=== PATIENT | male | born 1960 | race Caucasian/White ===

== ENCOUNTER → 2016-10-02 | Outpatient (CLI) | payer OTHER ==
[~2016-10-02] MED LIST: LISI-729 PO; METF1000 PO; OMEPRAZOLE PO; ONDA4TAB10 SL; OXYC1TAB3 PO; PRLSR20 PO; TAMS0.4C38 PO; [UNRECOGNIZED DRUG - OTHER] PO; simvastin PO
[2016-10-02 17:43] LABS: BASO % 0.9 %; BASO ABS # 0.07 K/uL (0-0.2); COMPLETE YES; EOS % 3.4 %; IG% 0.1 %; LYMPH % 23.1 %; LYMPH ABS # 1.86 K/uL (1.2-3.4); MEAN CELL VOLUME 90.3 fL (80-100); MEAN CORPUSCULAR HEMOGLOBIN 29.9 pg (25-34); MEAN CORPUSCULAR HGB CONC 33.1 g/dl (32-36); MEAN PLATELET VOLUME 10.8 fL (7.4-10.4); MONO % 5.7 %; NEUT % 66.8 %; PLATELET COUNT 248 K/uL (130-400); RED BLOOD COUNT 4.32 M/uL (4.7-6.1); WHITE BLOOD COUNT 8.04 K/uL (4.8-10.8)
[2016-10-02 17:53] LABS: URINE APPEARANCE CLEAR (CLEAR); URINE BILIRUBIN NEG (NEG); URINE COLOR YELLOW; URINE EPITHELIAL CELL AUTO 0-5 /lpf (0-5); URINE NITRITE NEG (NEG); URINE PH 5.5 (4.5-7.5); URINE SPECIFIC GRAVITY 1.024 (1.000-1.030); UROBILINOGEN NEG (NEG); ZZUR CULT IF INDIC CLEAN CATCH NO
[2016-10-02 17:54] LABS: ALT/SGPT 29 U/L (12-78); BLOOD UREA NITROGEN 23 mg/dl (7-18); BUN/CREATININE RATIO 22.8 (10-20); CARBON DIOXIDE 29 mmol/L (21-32); CHLORIDE 105 mmol/L (98-107); GLUCOSE 103 mg/dl (70-99); POTASSIUM 4.3 mmol/L (3.5-5.1); SODIUM 143 mmol/L (136-145)
[2016-10-02 17:55] LABS: MANUAL MICROSCOPIC REQUIRED? NO; REVIEW REQ? NO
[2016-10-02 18:02] LABS: CALCIUM 9.4 mg/dl (8.5-10.1)
[2016-10-02 18:04] LABS: ALB/GLOB RATIO 1.2 (0.9-2); ALKALINE PHOSPHATASE 68 U/L (45-117); AST/SGOT 19 U/L (15-37)
== END | disposition home or self-care (01) ==
LOC: C.LABBFT 12:34
PROVIDERS: ATTEND Physician Assistant Medical
DX: R63.4 Abnormal weight loss (principal)

== ENCOUNTER → 2016-10-03 | Outpatient (CLI) | payer OTHER ==
--- NOTE | 2016-10-03 15:55 | DIAGNOSTIC IMAGING REPORT ---
CHEST 2 VIEWS ROUTINE CLINICAL HISTORY: R63.4 Weight [id number] weight loss COMPARISON STUDY: No previous studies for comparison. FINDINGS: The bones soft tissues and hemidiaphragms are normal. The cardiomediastinal silhouette is normal. The lungs are clear. The pulmonary vasculature is normal. IMPRESSION: Negative chest. Electronically signed by: Steve Ruiz M.D. 10/03/2016 3:54 PM Dictated Date/Time: 10/03/2016 3:54 PM
== END | disposition home or self-care (01) ==
LOC: C.RAD1850 15:17
PROVIDERS: ATTEND Physician Assistant Medical
DX: R63.4 Abnormal weight loss (principal)

== ENCOUNTER 2016-12-11 13:25 | Emergency (ER) | payer OTHER ==
[~2016-12-11] VITALS: Ht 172.7 cm; Wt 81.1 kg
[~2016-12-11 13:25] MED LIST changes: -LISI-729 PO; -ONDA4TAB10 SL; -OXYC1TAB3 PO; -PRLSR20 PO; -TAMS0.4C38 PO
[2016-12-11 13:27] VITALS: TEMP 36.7; Ht 172.7 cm; Wt 81.1 kg
[2016-12-11] MEDS ORDERED: KETOROLAC TROMETHAMINE 30 MG/ML VIAL IV STA (13:39)
[2016-12-11] MEDS ORDERED: SODIUM CHLORIDE 0.9% 1000ML 1,000 ML IV STA (13:39)
[2016-12-11] MEDS ORDERED: MoRPHine SULFATE 10 MG/ML CARP/VIAL IV STA (13:39)
[2016-12-11] MEDS ORDERED: ONDANSETRON INJ 2 MG/ML 2 ML VIAL IV STA (13:39)
[2016-12-11] MEDS ORDERED: TAMSULOSIN HCL 0.4 MG CAP PO ONE (13:45)
[2016-12-11] MEDS ORDERED: LISI-729 PO (13:54)
[2016-12-11] MEDS ORDERED: PRLSR20 PO (13:54)
[2016-12-11 14:11] LABS: BASO % 0.2 %; BASO ABS # 0.03 K/uL (0-0.2); COMPLETE YES; EOS % 0.3 %; HEMATOCRIT 40.1 % (42-52); IG% 0.3 %; LYMPH ABS # 0.76 K/uL (1.2-3.4); MEAN CELL VOLUME 89.7 fL (80-100); MEAN CORPUSCULAR HEMOGLOBIN 31.1 pg (25-34); MEAN CORPUSCULAR HGB CONC 34.7 g/dl (32-36); MEAN PLATELET VOLUME 10.3 fL (7.4-10.4); MONO % 3.6 %; NEUT % 90.6 %; PLATELET COUNT 258 K/uL (130-400); RED BLOOD COUNT 4.47 M/uL (4.7-6.1); WHITE BLOOD COUNT 15.06 K/uL (4.8-10.8)
[2016-12-11 14:21] LABS: BUN/CREATININE RATIO 16.7 (10-20); CALCIUM 9.2 mg/dl (8.5-10.1); CREATININE 1.5 mg/dl (0.60-1.40); POTASSIUM 4.4 mmol/L (3.5-5.1)
--- NOTE | 2016-12-11 14:27 | DIAGNOSTIC IMAGING REPORT ---
CT SCAN OF THE ABDOMEN AND PELVIS WITHOUT IV CONTRAST CLINICAL HISTORY: Right-sided abdominal pain. COMPARISON STUDY: Fluoroscopic upper GI series dated 12/15/2005. TECHNIQUE: CT scan of the abdomen and pelvis is performed from the lung bases to the proximal femora. Images are reviewed in the axial, sagittal, and coronal planes. IV contrast was not administered for this examination as per the referring clinician. Automated dose control exposure was utilized. A dose lowering technique was utilized adhering to the principles of ALARA. CT DOSE: 682.46 mGy.cm FINDINGS: Lung bases: The heart is normal in size and without pericardial effusion. The lung bases are clear noting dependent atelectasis. There is a tiny hiatal hernia. Liver: The unenhanced liver is enlarged, measuring 19.1 cm in length. The liver is normal in contour And attenuation. There is no intrahepatic biliary ductal dilatation. Gallbladder: Unremarkable. Spleen: Normal in size and attenuation. Pancreas: Unremarkable. Adrenal glands: Unremarkable. Kidneys: The unenhanced kidneys are normal in size. There is a 4 mm obstructing calculus identified at the right vesicoureteral junction seen on axial image #370. This causes moderate right-sided hydroureteronephrosis. There is associated right-sided perinephric and periureteric stranding. No additional calculi are identified in either kidney and there is no left-sided hydronephrosis. There is no evidence of contour deforming renal mass lesion. Abdominal vasculature: The abdominal aorta is normal in course and caliber noting mild to moderate atherosclerotic calcification. Bowel: The small bowel and colon are normal in course and caliber. The appendix is well-visualized and normal. Peritoneum: There is no intraperitoneal free air or abdominal ascites. There is a fat-containing umbilical hernia. Lymphadenopathy: None. Pelvic viscera: The bladder, prostate, and seminal vesicles are normal as visualized. There is a large fat-containing left inguinal hernia. Skeletal structures: No lytic or blastic lesions are seen. IMPRESSION: 1. There is a 4 mm obstructing calculus at the right vesicoureteral junction. This causes moderate right-sided hydroureteronephrosis. 2. No additional calculi are seen in either kidney. 3. Hepatomegaly. 4. Additional findings as above. Electronically signed by: Duke Roque M.D. 12/11/2016 2:26 PM Dictated Date/Time: 12/11/2016 2:20 PM
[2016-12-11] MEDS ORDERED: TAMS0.4C38 PO (14:50)
[2016-12-11] MEDS ORDERED: ONDA4TAB10 SL (14:50)
[2016-12-11] MEDS ORDERED: OXYC1TAB3 PO (14:50)
--- NOTE | 2016-12-11 14:52 | EMERGENCY ROOM VISIT NOTE ---
History First contact with patient: 13:31 Chief Complaint: ABDOMINAL PAIN Stated Complaint: RT SIDE PAIN IN BELLY/BACK AREA History of Present Illness The patient is a 56 year old male who presents to the Emergency Room with complaints of acute onset of right flank pain. The patient states around 10 AM this morning he got a sharp pain in the right lower back which came around the right side. The patient also states that he fell nauseous and diaphoretic. The patient still feels like someone "punched him". The patient denies any urinary symptoms of frequency, urgency, dysuria. The patient denies any chest pain or shortness of breath. The patient states he had a normal bowel movement. He last ate at 6:30 AM. The patient denies any similar symptoms in the past. The patient denies any history of kidney stones. His family doctor is Dr. Ayala Review of Systems 10 system review was performed and was negative unless stated otherwise history of present illness. Past Medical/Surgical History GERD, diabetes Social History Smoking Status: Never Smoker Marital Status: Housing Status: lives with family Occupation Status: employed Current/Historical Medications Scheduled Lisinopril (Prinivil), 5 MG PO DAILY Omeprazole (Prilosec), 20 MG PO DAILY Allergies Coded Allergies: No Known Allergies (Unverified , 12/11/11) Physical Exam Vital Signs Date Time Temp Pulse Resp B/P (MAP) Pulse Ox O2 Delivery O2 Flow Rate FiO2 12/11/16 13:27 36.7 57 20 144/89 97 Room Air Physical Exam GENERAL: 56-year-old white male appears uncomfortable secondary to pain. MENTAL Status: Alert and oriented 3 MOUTH: Mucosa is moist NECK: Supple, no lymphadenopathy noted. No carotid bruits noted. LUNGS: Clear auscultation without wheezes rales or rhonchi. CARDIAC: Regular rate and rhythm without murmur. Pulses is full and equal throughout. BACK: Right CVA tenderness noted. ABDOMEN: Positive bowel sounds all 4 quadrants. Soft, nontender to palpation without organomegaly or masses. EXTREMITIES: No cyanosis or edema noted. Medical Decision & Procedures ER Provider Diagnostic Interpretation: CT SCAN OF THE ABDOMEN AND PELVIS WITHOUT IV CONTRAST CLINICAL HISTORY: Right-sided abdominal pain. COMPARISON STUDY: Fluoroscopic upper GI series dated 12/15/2005. TECHNIQUE: CT scan of the abdomen and pelvis is performed from the lung bases to the proximal femora. Images are reviewed in the axial, sagittal, and coronal planes. IV contrast was not administered for this examination as per the referring clinician. Automated dose control exposure was utilized. A dose lowering technique was utilized adhering to the principles of ALARA. CT DOSE: 682.46 mGy.cm FINDINGS: Lung bases: The heart is normal in size and without pericardial effusion. The lung bases are clear noting dependent atelectasis. There is a tiny hiatal hernia. Liver: The unenhanced liver is enlarged, measuring 19.1 cm in length. The liver is normal in contour And attenuation. There is no intrahepatic biliary ductal dilatation. Gallbladder: Unremarkable. Spleen: Normal in size and attenuation. Pancreas: Unremarkable. Adrenal glands: Unremarkable. Kidneys: The unenhanced kidneys are normal in size. There is a 4 mm obstructing calculus identified at the right vesicoureteral junction seen on axial image #370. This causes moderate right-sided hydroureteronephrosis. There is associated right-sided perinephric and periureteric stranding. No additional calculi are identified in either kidney and there is no left-sided hydronephrosis. There is no evidence of contour deforming renal mass lesion. Abdominal vasculature: The abdominal aorta is normal in course and caliber noting mild to moderate atherosclerotic calcification. Bowel: The small bowel and colon are normal in course and caliber. The appendix is well-visualized and normal. Peritoneum: There is no intraperitoneal free air or abdominal ascites. There is a fat-containing umbilical hernia. Lymphadenopathy: None. Pelvic viscera: The bladder, prostate, and seminal vesicles are normal as visualized. There is a large fat-containing left inguinal hernia. Skeletal structures: No lytic or blastic lesions are seen. IMPRESSION: 1. There is a 4 mm obstructing calculus at the right vesicoureteral junction. This causes moderate right-sided hydroureteronephrosis. 2. No additional calculi are seen in either kidney. 3. Hepatomegaly. 4. Additional findings as above. Electronically signed by: Duke Roque M.D. 12/11/2016 2:26 PM Dictated Date/Time: 12/11/2016 2:20 PM Laboratory Results 12/11/16 13:50 Red Blood Count 4.47, Mean Corpuscular Volume 89.7, Mean Corpuscular Hemoglobin 31.1, Mean Corpuscular Hemoglobin Concent 34.7, Mean Platelet Volume 10.3, Neutrophils (%) (Auto) 90.6, Lymphocytes (%) (Auto) 5.0, Monocytes (%) (Auto) 3.6, Eosinophils (%) (Auto) 0.3, Basophils (%) (Auto) 0.2, Neutrophils # (Auto) 13.65, Lymphocytes # (Auto) 0.76, Monocytes # (Auto) 0.54, Eosinophils # (Auto) 0.04, Basophils # (Auto) 0.03 12/11/16 13:50 Test 12/11/16 13:50 White Blood Count 15.06 K/uL (4.8-10.8) Red Blood Count 4.47 M/uL (4.7-6.1) Hemoglobin 13.9 g/dL (14.0-18.0) Hematocrit 40.1 % (42-52) Mean Corpuscular Volume 89.7 fL (80-100) Mean Corpuscular Hemoglobin 31.1 pg (25-34) Mean Corpuscular Hemoglobin Concent 34.7 g/dl (32-36) Platelet Count 258 K/uL (130-400) Mean Platelet Volume 10.3 fL (7.4-10.4) Neutrophils (%) (Auto) 90.6 % Lymphocytes (%) (Auto) 5.0 % Monocytes (%) (Auto) 3.6 % Eosinophils (%) (Auto) 0.3 % Basophils (%) (Auto) 0.2 % Neutrophils # (Auto) 13.65 K/uL (1.4-6.5) Lymphocytes # (Auto) 0.76 K/uL (1.2-3.4) Monocytes # (Auto) 0.54 K/uL (0.11-0.59) Eosinophils # (Auto) 0.04 K/uL (0-0.5) Basophils # (Auto) 0.03 K/uL (0-0.2) RDW Standard Deviation 39.8 fL (36.4-46.3) RDW Coefficient of Variation 12.1 % (11.5-14.5) Immature Granulocyte % (Auto) 0.3 % Immature Granulocyte # (Auto) 0.04 K/uL (0.00-0.02) Anion Gap 5.0 mmol/L (3-11) Est Creatinine Clear Calc Drug Dose 54.5 ml/min Estimated GFR () 60.3 Estimated GFR (Non- 52.0 BUN/Creatinine Ratio 16.7 (10-20) Calcium Level 9.2 mg/dl (8.5-10.1) Total Bilirubin 0.5 mg/dl (0.2-1) Direct Bilirubin 0.1 mg/dl (0-0.2) Aspartate Amino Transf (AST/SGOT) 19 U/L (15-37) Alanine Aminotransferase (ALT/SGPT) 28 U/L (12-78) Alkaline Phosphatase 66 U/L (45-117) Total Protein 7.9 gm/dl (6.4-8.2) Albumin 4.5 gm/dl (3.4-5.0) Lipase 243 U/L (73-393) Medications Administered Medications (Trade) Dose Ordered Sig/Steven Route Start Time Stop Time Status Last Admin Dose Admin Sodium Chloride 1,000 ml @ 999 mls/hr Q1H1M STAT IV 12/11/16 13:39 12/11/16 14:39 DC 12/11/16 14:01 999 MLS/HR Ondansetron HCl (Zofran Inj) 4 mg NOW STAT IV 12/11/16 13:39 12/11/16 13:42 DC 12/11/16 14:01 4 MG Ketorolac Tromethamine (Toradol Inj) 30 mg NOW STAT IV 12/11/16 13:39 12/11/16 13:42 DC 12/11/16 14:01 30 MG Morphine Sulfate (MoRPHine SULFATE INJ) 6 mg NOW STAT IV 12/11/16 13:39 12/11/16 13:42 DC 12/11/16 14:02 6 MG Tamsulosin HCl (Flomax Cap) 0.4 mg NOW ONCE PO 12/11/16 13:45 12/11/16 13:46 DC 12/11/16 14:02 0.4 MG ED Course The patient was evaluated. The patient's EMR medication list were reviewed. IV access was obtained. The patient was given 1 L normal saline wide-open. He was also given Zofran 4 mg IV, morphine 6 mg IV and Toradol 30 mg IV. He was also given Flomax 0.4 mg by mouth. CBC and differential, renal profile, LFTs and lipase levels were ordered. Urinalysis was ordered. CT stone study was ordered and interpreted by the radiologist as above with a 4 mm obstructing calculus noted at the right UV junction labs are reviewed. The patient's white count was elevated at 15,000. BUN and creatinine were slightly elevated. The patient was reevaluated was feeling much better. I discussed the case with Dr. Gee who agreed with treatment plan. The patient was discharged home in stable condition.. Medical Decision Differential diagnosis include acute cholecystitis, ureteral calculi, pyelonephritis, acute appendicitis Impression Primary Impression: Right ureteral calculus Departure Information Dispostion Home / Self-Care Condition GOOD Prescriptions Oxycodone Immediate Rel Tab (ROXICODONE IR) 5 Mg Tab 1-2 TAB PO Q4H Y for Pain, #24 TAB Prov: Meg Ruiz PA-C 12/11/16 Ondasetron Odt (ZOFRAN ODT) 4 Mg Tab 4 MG SL Q6H for Nausea, #10 TAB Prov: Meg Ruiz PA-C 12/11/16 Tamsulosin Hcl (FLOMAX) 0.4 Mg Cap 0.4 MG PO DAILY for 7 Days, #7 CAP Prov: Meg Ruiz PA-C 12/11/16 Referrals Alexx Ayala M.D. (PCP) Martin Longoria MD, Urology Forms Call Back Authorization, HOME CARE DOCUMENTATION FORM, IMPORTANT VISIT INFORMATION Patient Instructions Kidney Stones - [facility], [facility] Additional Instructions Drink a lot of water. Strain all urine. Ibuprofen 600 mg every 6 hours with food for pain. Take OxyIR as needed for more severe pain. Do not drive while taking the OxyIR. Take Zofran as needed for nausea. Take Flomax daily as directed. If you do not pass the kidney stone in 5-7 days, recommend follow-up with Dr. Longoria. If symptoms worsen in the interim, return to ER.
[2016-12-11 15:06] VITALS: BP 102/50; PULSE 60; O2SAT 95
== END 2016-12-11 15:07 | disposition home or self-care (01) ==
LOC: C.EDB 13:26 → C.EDC 15:07
DX: N20.1 Calculus of ureter (principal); E11.9 Type 2 diabetes mellitus without complications; K21.9 Gastro-esophageal reflux disease without esophagitis; Z79.899 Other long term (current) drug therapy

== ENCOUNTER 2021-02-14 18:15 | Inpatient (IN) ==
[2021-02-14] MEDS ORDERED: dexAMETHasone**PF** 10 MG/ML VIAL IV ONE (19:33)
[2021-02-14] MEDS ORDERED: SODIUM CHLORIDE 0.9% 500 ML IV STA (19:33)
--- NOTE | 2021-02-14 19:36 | Emergency Department Note ---
Impression & Plan Hypoxia, COVID-19 Admission ED Provider Note HPI: The patient is a 60-year-old male with history of insulin-dependent diabetes, presents the emergency department the chief complaint of increasing shortness of breath. Patient states that he has had some shortness of breath and muscle aches for the past 8 days, he states that he took a COVID-19 home test yesterday and it did return positive for COVID-19. He states he has had worsening shortness of breath throughout the day today and his advised him to go to the emergency department. On arrival here to the ED he is tachycardic in the 130s, his oxygen saturation is noted to be 84% on room air and therefore he was placed on supplemental oxygen via nasal cannula with good improvement in his oxygen saturations in the mid 90s on 4 L nasal cannula. He denies any chest pain, states he has had muscle aches and shortness of breath. He is in mild distress secondary to Mild increased work of breathing on my initial evaluation but is otherwise hemodynamically stable. ROS: - Pulmonary: Shortness of breath, COVID-19 positive *10 point review systems was conducted and is otherwise negative unless stated above *Outpatient medications and allergy history reviewed PE: General: Alert, NAD HEENT: Normocephalic, atraumatic, trachea midline Eyes: Extraocular eye movement is intact, no scleral erythema Pulmonary: Diminished bilateral breath sounds, no crackles or wheezing Cardio: Regular rate and rhythm GI: Abdomen is soft, nontender : No suprapubic tenderness MSK: No evidence of trauma or malformation of the extremities, no edema Skin: No evidence of rash Neuro: Alert, no focal deficits 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 Patient states he tested positive for COVID-19 over the weekend on home test. On arrival he is hypoxic at 84%, he responded well to nasal cannula. On my assessment he has diminished bilateral breath sounds, he is slightly tachypneic, his abdomen is soft and nontender. He is alert, he is speaking to me clearly. CT angiography does not show any evidence of pulmonary embolism, patient did test positive for COVID-19 on confirmatory test. Procalcitonin is elevated, will draw blood cultures and the patient will be treated with IV ceftriaxone and IV azithromycin given elevation in procalcitonin with finding of pneumonia on CT imaging. EKG does not show any ischemic changes.Troponin is slightly elevated at 0.058, suspect in the setting of an acute kidney injury with creatinine elevation at 2.2, this is likely demand related, patient does not have any chest pain, I believe suspicion for ACS. Patient was given IV fluids in the ED for his acute kidney injury. Case was discussed with the on-call hospitalist for Cailin Telles, patient will be admitted to a telemetry bed for further management. * Diagnosis: COVID-19 pneumonia with hypoxia, Elevated troponin, acute kidney injury * Disposition: Admission * CRITICAL CARE TIME: 50 min Time spent at the bedside and interpretation of diagnostic studies, discussion with the patient, discussion with other physicians, treatment of hypoxia requiring supplemental oxygen requirement for oxygen saturations less than 90% on room air Steve Tovar DO Emergency Medicine Past Med/Surg History Medical History (Updated 02/14/21 @ 23:24 by Steve Tovar DO) Uncontrolled type 2 diabetes mellitus Surgical History (Updated 05/12/20 @ 16:07 by Rose Delgado LPN) History of colonoscopy Family History (Updated 10/05/20 @ 15:00 by Dorinda Bethea) Mother Diabetes Other Myocardial infarction Denies family history of Ovarian cancer Prostate cancer Breast cancer Colorectal cancer Social History (Updated 10/05/20 @ 15:01 by Dorinda Bethea) Smoking Status: Former smoker Tobacco Type: Cigarettes Second Hand Exposure: No; Hx Alcohol Use: Yes Alcohol Intake Frequency: Monthly or Less Hx Substance Use: No Preferred Language: Maori Visual Impairment: No Limitations Hearing Ability: Normal marital status: Current Living Situation: Family current occupational status: employed Feels Safe at Home: Yes Childhood Exposure to Second-Hand Smoke: Yes Dental Care, Regularly: No Physical Activity Frequency: Daily Allergies Allergies Allergy/AdvReac Type Severity Reaction Status Date / Time No Known Allergies Allergy Verified 10/05/20 14:59 Home Meds Home Medications Medication Instructions Recorded Confirmed lisinopril 5 mg tablet 5 mg PO DAILY 02/14/21 02/14/21 omeprazole 20 mg capsule,delayed 20 mg PO DAILY 02/14/21 02/14/21 release Previous Rx's Medication Instructions Recorded meloxicam 7.5 mg tablet 7.5 mg PO DAILY #30 tab 06/09/21 rosuvastatin 10 mg tablet 10 mg PO DAILY #90 tab 10/15/20 metformin 500 mg tablet,extended 1,000 mg PO BID #360 tab 02/01/21 release 24 hr Results & Data (ED) Vital Signs Vital Signs - 24 hr 02/14/21 19:02 02/14/21 19:06 02/14/21 19:15 Temperature 38.1 C H Temperature Source Temporal Artery Scan Pulse Rate 135 H 128 H Pulse Rate from SpO2 Sensor 127 H Respiratory Rate 20 25 H Blood Pressure 111/73 Blood Pressure Mean 85 Pulse Oximetry 84 L 96 90 Oxygen Delivery Method Room Air Room Air Oxygen Flow Rate 86 Sepsis Recent Fever Within 48 Hours No Sepsis New/Unexplained Change in Mental Status No Sepsis Action Taken by Nursing No Action Required Oxygen Flow Rate - Titration 4 02/14/21 19:20 02/14/21 19:30 02/14/21 19:40 Temperature Temperature Source Pulse Rate 125 H 134 H 128 H Pulse Rate from SpO2 Sensor 126 H 134 H 128 H Respiratory Rate 25 H 22 20 Blood Pressure 124/80 Blood Pressure Mean 94 Pulse Oximetry 91 92 91 Oxygen Delivery Method Oxygen Flow Rate Sepsis Recent Fever Within 48 Hours Sepsis New/Unexplained Change in Mental Status Sepsis Action Taken by Nursing Oxygen Flow Rate - Titration 02/14/21 19:50 02/14/21 20:00 02/14/21 20:10 Temperature Temperature Source Pulse Rate 123 H 124 H 126 H Pulse Rate from SpO2 Sensor 122 H 124 H 126 H Respiratory Rate 24 20 25 H Blood Pressure Blood Pressure Mean Pulse Oximetry 93 94 94 Oxygen Delivery Method Oxygen Flow Rate Sepsis Recent Fever Within 48 Hours Sepsis New/Unexplained Change in Mental Status Sepsis Action Taken by Nursing Oxygen Flow Rate - Titration 02/14/21 20:15 02/14/21 20:20 02/14/21 20:30 Temperature Temperature Source Pulse Rate 122 H 123 H 115 H Pulse Rate from SpO2 Sensor 122 H 116 H Respiratory Rate 20 29 H 25 H Blood Pressure Blood Pressure Mean Pulse Oximetry 86 L 93 94 Oxygen Delivery Method Room Air Oxygen Flow Rate Sepsis Recent Fever Within 48 Hours Sepsis New/Unexplained Change in Mental Status Sepsis Action Taken by Nursing Oxygen Flow Rate - Titration 02/14/21 20:40 02/14/21 20:50 02/14/21 21:06 Temperature Temperature Source Pulse Rate 120 H 121 H Pulse Rate from SpO2 Sensor 119 H 122 H 125 H Respiratory Rate 20 24 Blood Pressure Blood Pressure Mean Pulse Oximetry 93 93 91 Oxygen Delivery Method Oxygen Flow Rate Sepsis Recent Fever Within 48 Hours Sepsis New/Unexplained Change in Mental Status Sepsis Action Taken by Nursing Oxygen Flow Rate - Titration 02/14/21 21:10 02/14/21 21:36 02/14/21 21:40 Temperature Temperature Source Pulse Rate 116 H 114 H 112 H Pulse Rate from SpO2 Sensor 117 H 120 H 113 H Respiratory Rate 32 H 18 20 Blood Pressure 112/78 Blood Pressure Mean 89 Pulse Oximetry 93 92 96 Oxygen Delivery Method Oxygen Flow Rate Sepsis Recent Fever Within 48 Hours Sepsis New/Unexplained Change in Mental Status Sepsis Action Taken by Nursing Oxygen Flow Rate - Titration 02/14/21 22:00 02/14/21 22:30 02/14/21 23:00 Temperature Temperature Source Pulse Rate 108 H 102 H 97 H Pulse Rate from SpO2 Sensor 109 H 102 H Respiratory Rate 29 H 28 H 23 Blood Pressure 110/71 105/72 Blood Pressure Mean 84 83 Pulse Oximetry 97 98 98 Oxygen Delivery Method Nasal Cannula Nasal Cannula Oxygen Flow Rate 4 4 Sepsis Recent Fever Within 48 Hours Sepsis New/Unexplained Change in Mental Status Sepsis Action Taken by Nursing Oxygen Flow Rate - Titration Laboratory Data Result diagrams: 02/14/21 19:37 02/14/21 19:37 Lab Results 02/14/21 02/14/21 02/14/21 Range/Units 19:37 19:37 19:37 WBC 4.21 L (4.8-10.8) K/uL RBC 4.78 (4.7-6.1) M/uL Hgb 14.7 (14.0-18.0) g/dL Hct 42.2 (42-52) % MCV 88.3 (80-100) fL MCH 30.8 (25-34) pg MCHC 34.8 (32-36) g/dL RDW Std Deviation 40.6 (36.4-46.3) fL RDW Coeff of Jen 12.6 (11.5-14.5) % Plt Count 215 (130-400) K/uL MPV 11.1 H (7.4-10.4) fL Immature Gran % (Auto) 0.0 % Neut % (Auto) 76.8 % Lymph % (Auto) 12.6 % [place] % (Auto) 10.2 % Eos % (Auto) 0.2 % Baso % (Auto) 0.2 % Neut # (Auto) 3.23 (1.4-6.5) K/uL Lymph # (Auto) 0.53 L (1.2-3.4) K/uL [place] # (Auto) 0.43 (0.11-0.59) K/uL Eos # (Auto) 0.01 (0-0.5) K/uL Baso # (Auto) 0.01 (0-0.2) K/uL Immature Gran # (Auto) 0.00 (0.00-0.02) K/uL PT Cancelled INR Cancelled APTT Cancelled PTT Ratio Cancelled VBG pH (7.36-7.41) VBG pCO2 (38-50) mmHg VBG pO2 mmHg VBG HCO3 mmol/L VBG O2 Saturation % VBG Base Excess mEq/L Barometric Pressure mm/Hg Sodium 130 L (136-145) mmol/L Potassium 4.7 (3.5-5.1) mmol/L Chloride 100 (98-107) mmol/L Carbon Dioxide 20 L (21-32) mmol/L Anion Gap 10.0 (3-11) BUN 46 H (7-18) mg/dl Creatinine 2.33 H (0.6-1.4) mg/dl Est Cr Clr Drug Dosing 34.5 ml/min Est GFR ( Amer) 34.4 ml/min Est GFR (Non-Af Amer) 29.7 ml/min BUN/Creatinine Ratio 19.9 (10-20) Glucose 254 H (70-99) mg/dl Lactate (0.4-2.0) mmol/L Calcium 8.8 (8.5-10.1) mg/dl Total Bilirubin 0.5 (0.2-1) mg/dl AST 97 H (15-37) U/L ALT 84 H (12-78) U/L Alkaline Phosphatase 40 L (45-117) U/L Total Protein 8.0 (6.4-8.2) gm/dl Albumin 3.0 L (3.4-5.0) gm/dl Globulin 5.0 H (2.5-4.0) gm/dl Albumin/Globulin Ratio 0.6 L (0.9-2) Procalcitonin (0-0.5) ng/ml Specimen Hemolysis COVID-19 Eval Order SARS-CoV-2 (PCR) (Negative) 02/14/21 02/14/21 02/14/21 Range/Units 19:37 19:37 20:15 WBC (4.8-10.8) K/uL RBC (4.7-6.1) M/uL Hgb (14.0-18.0) g/dL Hct (42-52) % MCV (80-100) fL MCH (25-34) pg MCHC (32-36) g/dL RDW Std Deviation (36.4-46.3) fL RDW Coeff of Jen (11.5-14.5) % Plt Count (130-400) K/uL MPV (7.4-10.4) fL Immature Gran % (Auto) % Neut % (Auto) % Lymph % (Auto) % [place] % (Auto) % Eos % (Auto) % Baso % (Auto) % Neut # (Auto) (1.4-6.5) K/uL Lymph # (Auto) (1.2-3.4) K/uL [place] # (Auto) (0.11-0.59) K/uL Eos # (Auto) (0-0.5) K/uL Baso # (Auto) (0-0.2) K/uL Immature Gran # (Auto) (0.00-0.02) K/uL PT INR APTT PTT Ratio VBG pH 7.38 (7.36-7.41) VBG pCO2 37 L (38-50) mmHg VBG pO2 17 mmHg VBG HCO3 21 mmol/L VBG O2 Saturation < 60.0 % VBG Base Excess -3.5 mEq/L Barometric Pressure 732.8 mm/Hg Sodium (136-145) mmol/L Potassium (3.5-5.1) mmol/L Chloride (98-107) mmol/L Carbon Dioxide (21-32) mmol/L Anion Gap (3-11) BUN (7-18) mg/dl Creatinine (0.6-1.4) mg/dl Est Cr Clr Drug Dosing ml/min Est GFR ( Amer) ml/min Est GFR (Non-Af Amer) ml/min BUN/Creatinine Ratio (10-20) Glucose (70-99) mg/dl Lactate (0.4-2.0) mmol/L Calcium (8.5-10.1) mg/dl Total Bilirubin (0.2-1) mg/dl AST (15-37) U/L ALT (12-78) U/L Alkaline Phosphatase (45-117) U/L Total Protein (6.4-8.2) gm/dl Albumin (3.4-5.0) gm/dl Globulin (2.5-4.0) gm/dl Albumin/Globulin Ratio (0.9-2) Procalcitonin (0-0.5) ng/ml Specimen Hemolysis COVID-19 Eval Order Covid19 at [facility] SARS-CoV-2 (PCR) POSITIVE A* (Negative) 02/14/21 02/14/21 02/14/21 Range/Units 20:16 20:16 20:52 WBC (4.8-10.8) K/uL RBC (4.7-6.1) M/uL Hgb (14.0-18.0) g/dL Hct (42-52) % MCV (80-100) fL MCH (25-34) pg MCHC (32-36) g/dL RDW Std Deviation (36.4-46.3) fL RDW Coeff of Jen (11.5-14.5) % Plt Count (130-400) K/uL MPV (7.4-10.4) fL Immature Gran % (Auto) % Neut % (Auto) % Lymph % (Auto) % [place] % (Auto) % Eos % (Auto) % Baso % (Auto) % Neut # (Auto) (1.4-6.5) K/uL Lymph # (Auto) (1.2-3.4) K/uL [place] # (Auto) (0.11-0.59) K/uL Eos # (Auto) (0-0.5) K/uL Baso # (Auto) (0-0.2) K/uL Immature Gran # (Auto) (0.00-0.02) K/uL PT 10.3 INR 1.0 APTT 27.3 PTT Ratio 1.0 VBG pH (7.36-7.41) VBG pCO2 (38-50) mmHg VBG pO2 mmHg VBG HCO3 mmol/L VBG O2 Saturation % VBG Base Excess mEq/L Barometric Pressure mm/Hg Sodium (136-145) mmol/L Potassium (3.5-5.1) mmol/L Chloride (98-107) mmol/L Carbon Dioxide (21-32) mmol/L Anion Gap (3-11) BUN (7-18) mg/dl Creatinine (0.6-1.4) mg/dl Est Cr Clr Drug Dosing ml/min Est GFR ( Amer) ml/min Est GFR (Non-Af Amer) ml/min BUN/Creatinine Ratio (10-20) Glucose (70-99) mg/dl Lactate 1.7 (0.4-2.0) mmol/L Calcium (8.5-10.1) mg/dl Total Bilirubin (0.2-1) mg/dl AST (15-37) U/L ALT (12-78) U/L Alkaline Phosphatase (45-117) U/L Total Protein (6.4-8.2) gm/dl Albumin (3.4-5.0) gm/dl Globulin (2.5-4.0) gm/dl Albumin/Globulin Ratio (0.9-2) Procalcitonin 1.30 H (0-0.5) ng/ml Specimen Hemolysis COVID-19 Eval Order SARS-CoV-2 (PCR) (Negative) Administered Medications Discontinued Medications Dexamethasone Sodium Phosphate (DexamethasonePf 10 Mg/Ml Vial) 10 mg IV NOW ONE Stop: 02/14/21 19:34 Last Admin: 02/14/21 21:03 Dose: 10 mg Documented by: [id number] Sodium Chloride (Nss) 500 mls @ 999 mls/hr IV .Q31M STA Stop: 02/14/21 20:03 Last Infusion: 02/14/21 21:34 Dose: 999 mls/hr Documented by: [id number] Admin: 02/14/21 21:03 Dose: 999 mls/hr Documented by: [id number] Ioversol (Optiray 320 125ml) 113 ml IV ONCE ONE Stop: 02/14/21 21:24 Last Admin: 02/14/21 21:29 Dose: 113 ml Documented by: [id number] Discharge Plan Visit Data Chief Complaint: Shortness of Breath/Dyspnea Stated Complaint: COVID +, COUGH, SOB ED Provider: Steve Tovar Discharge Problem: Hypoxia, COVID-19 Forms Stand Alone Forms: My [facility] Prescriptions Prescriptions: No Action rosuvastatin 10 mg tablet 10 mg PO DAILY Qty: 90 RF: 3 metformin 500 mg tablet extended release 24 hr 1,000 mg PO BID Qty: 360 RF: 3 meloxicam 7.5 mg tablet 7.5 mg PO DAILY Qty: 30 RF: 11 lisinopril 5 mg tablet 5 mg PO DAILY RF: 0 omeprazole 20 mg capsule,delayed release(DR/EC) 20 mg PO DAILY RF: 0 Referrals Referrals: Alexx Ayala III, MD [Primary Care Provider] -
[2021-02-14 19:58] LABS: Basophils # (auto) 0.01 K/uL (0-0.2); Basophils % (auto) 0.2 %; Eosinophils # (auto) 0.01 K/uL (0-0.5); Eosinophils % (auto) 0.2 %; Hematocrit (blood only) 42.2 % (42-52); Hemoglobin 14.7 g/dL (14.0-18.0); Lymphocytes # (auto) 0.53 K/uL (1.2-3.4); Lymphocytes % (auto) 12.6 %; Mean Corpuscular Hemoglobin 30.8 pg (25-34); Mean Corpuscular Hgb Conc 34.8 g/dL (32-36); Mean Corpuscular Volume 88.3 fL (80-100); Mean Platelet Volume 11.1 fL (7.4-10.4); Monocytes # (auto) 0.43 K/uL (0.11-0.59); Monocytes % (auto) 10.2 %; Neutrophils # (auto) 3.23 K/uL (1.4-6.5); Neutrophils % (auto) 76.8 %; Platelet Count 215 K/uL (130-400); RDW Coefficient of Variation 12.6 % (11.5-14.5); RDW Standard Deviation 40.6 fL (36.4-46.3); Red Blood Count 4.78 M/uL (4.7-6.1); White Blood Count 4.21 K/uL (4.8-10.8)
[2021-02-14 20:27] LABS: Base Excess VBG -3.5 mEq/L; HCO3 VBG 21 mmol/L; PCO2 VBG 37 mmHg (38-50); PO2 VBG 17 mmHg; pH VBG 7.38 (7.36-7.41)
[2021-02-14 20:27] LABS: Albumin Globulin Ratio 0.6 (0.9-2); BUN Creatinine Ratio 19.9 (10-20); Bilirubin,Total 0.5 mg/dl (0.2-1); Calcium 8.8 mg/dl (8.5-10.1); Creatinine Clr Calc Pharmacy 34.5 ml/min; Est GFR (African American) 34.4 ml/min; Est GFR (Non-African American) 29.7 ml/min; Potassium 4.7 mmol/L (3.5-5.1)
[2021-02-14 20:29] LABS: Oxygen Saturation VBG < 60.0 %
[2021-02-14 20:47] LABS: Partial Thromboplastin Time 27.3 Seconds (21.0-31.0); Prothrombin Time 10.3 Seconds (9.0-12.0)
[2021-02-14] MEDS ORDERED: OPTIRAY 320 125ml IV ONE (21:23)
[2021-02-14] MEDS ORDERED: ASPIRIN CHEW 324 MG PO STA (23:31)
[2021-02-14] MEDS ORDERED: cefTRIAXone SODIUM 1,000 MG/50 ML BAG IV STA (23:32)
[2021-02-14] MEDS ORDERED: AZITHROMYCIN 500 MG in DEXTROSE 5% 250 ML IV STA (23:32)
[2021-02-15 00:06] LABS: Troponin I 0.058 ng/ml (0-0.045)
--- NOTE | 2021-02-15 00:41 | History & Physical Report ---
Date of Service February 15, 2021 Assessment & Plan (1) COVID-19: Plan: Alvin Leija is a 60yo male with history of HLP, DM and GERD presenting with Covid-19 PNA with hypoxia. Patient has had ongoing symptoms x 8 days. Hypoxic on arrival to 84% on room air which improved with supplemental O2 - presently 98% on 4L. Patient is leukopenic with lymphopenia. Hyponatremic with Ih=962, elevation of AST=97 and ALT=84 Elevated BUN and Cr from baseline - see below Also with elevated Procalcitonin of 1.3 Patient is unvaccinated -Admit to medical -Maintain isolation precautions - contact and airborne for Covid-19 -Check inflammatory markers - CRP, Ferritin as well as LDH, BNP, CK and Ddimer x 1 -Dexamethasone 6mg IV daily -Continue Azithromycin in setting of elevated Procalcitonin -Will hold Remdesivir for now as patient with LYLA - CrCl of 34. Consider initiating this therapy if renal function improves -Lovenox 40mg BID for DVT prophylaxis in moderately ill (2) Elevated troponin: Plan: Patient states he has chest pain with coughing, otherwise no complaints -Trend troponin (3) LYLA (acute kidney injury): Plan: Elevated BUN of 46 and Cr of 2.33 from baseline of 18 and 1.05, respectively. Patient appears clinically dry on exam -Given 500mL NSS in ER. Will continue gentle fluids - LR at 125mL x 1 liter -Avoid nephrotoxic agents. Will hold Meloxicam and Lisinopril for now -Holding Remdesivir for pending fluid hydration and repeat chemistry panel (4) Hypercholesterolemia: Plan: Chronic -Continue Rosuvastatin 10mg po daily (5) Esophageal reflux: Plan: Chronic -Continue Omeprazole 20mg po daily (6) Type 2 diabetes mellitus: Plan: Chronic. Poorly controlled - last HgbA1C = 9 on 10/11/20. Patient on Metformin at home. States that his blood sugars have been over 200 for the last 8 days. Elevated today at 254. -Lantus 7u BID -ISS -Goal blood sugar 100 - 140 Plan: F/E/N - LR at 125mL/hr x 1 liter, monitor electrolytes - Na low at 130, check Mg and PO4 Ppx - Lovenox 40mg BID Code - Full per discussion with patient Dispo - Admit to medical History of Present Illness Chief Complaint: Cough, Covid-19 Primary Care Provider: Alexx Ayala MD Alvin Leija is a 60yo male with history of HLP, DM and GERD presenting with Covid-19 Pneumonia with hypoxia. Patient reports developing symptoms 8 days ago - persistent cough occasionally productive for thick mucus, fevers, body aches and chills as well as weakness and fatigue. He has some chest discomfort associated with coughing. Denies nausea, vomiting, diarrhea or constipation. Denies loss of taste or smell. He is not vaccinated against Covid-19. He took a home test 2 days ago which was POSITIVE. Upon arrival to the ER patient febrile at 38.1, tachycardic at 135bpm, hypoxic at 84% on room air. He was placed on supplemental O2 by nasal cannula with improvement. Presently 98% on 4L. No additional complaints at this time. ER Course: ASA 324mg PO, Azithromycin 500mg IV, Ceftriaxone 1gm IV, Dexamethasone 10mg IV, NSS x 500mL Allergies Allergy/AdvReac Type Severity Reaction Status Date / Time No Known Allergies Allergy Verified 10/05/20 14:59 Home Medications Medication Instructions Recorded Confirmed Type meloxicam 7.5 mg tablet 7.5 mg PO DAILY #30 tab 10/06/20 02/14/21 Rx rosuvastatin 10 mg tablet 10 mg PO DAILY #90 tab 10/15/20 02/14/21 Rx metformin 500 mg tablet,extended 1,000 mg PO BID #360 tab 02/01/21 02/14/21 Rx release 24 hr lisinopril 5 mg tablet 5 mg PO DAILY 02/14/21 02/14/21 History omeprazole 20 mg capsule,delayed 20 mg PO DAILY 02/14/21 02/14/21 History release Past Med/Surg History Medical History (Updated 02/15/21 @ 00:24 by Imelda Oviedo DO) Esophageal reflux Hypercholesterolemia Uncontrolled type 2 diabetes mellitus Surgical History (Updated 05/12/20 @ 16:07 by Rose Delgado LPN) History of colonoscopy Family History (Updated 10/05/20 @ 15:00 by Dorinda Bethea) Mother Diabetes Other Myocardial infarction Denies family history of Ovarian cancer Prostate cancer Breast cancer Colorectal cancer Social History (Updated 10/05/20 @ 15:01 by Dorinda Bethea) Smoking Status: Former smoker Tobacco Type: Cigarettes Second Hand Exposure: No; Hx Alcohol Use: Yes Alcohol Intake Frequency: Monthly or Less Hx Substance Use: No Preferred Language: Azerbaijani Visual Impairment: No Limitations Hearing Ability: Normal marital status: Current Living Situation: Family current occupational status: employed Feels Safe at Home: Yes Childhood Exposure to Second-Hand Smoke: Yes Dental Care, Regularly: No Physical Activity Frequency: Daily Review of Systems Review of Systems: All systems reviewed & are unremarkable except as noted in HPI & below Physical Exam Physical Exam: General: patient resting comfortably, NAD, non-toxic in appearance, AA&O x 4 Skin: warm, dry, intact, no rashes or lesions HEENT: NC/AT, PERRL, EOMI, anicteric sclera, conjunctiva without injection, external ear normal to inspection and nontender, nares patent, moist mucus membranes, dentition intact, no oropharyngeal lesions, neck supple, trachea midline, no LAD, no thyromegaly, no JVD Heart: +S1/S2, regular, no m/r/g Lungs: equal air entry bilaterally, no rales/rhonchi/wheezes Abd: +BS, soft, NT/ND, no masses/organomegaly/ascites Ext: warm, 2+ pulses in UE/LE bilaterally, no clubbing/cyanosis or edema Neuro: nonfocal, patient AA&O x 4, speech intact, no facial droop, moving all extremities on command with equal strength Results & Data Results & Data ([facility]) Vital Signs (Past 12 Hours) Vital Signs Temp Pulse Resp BP Pulse Ox 02/14/21 23:00 97 H 23 105/72 98 02/14/21 22:30 102 H 28 H 110/71 98 02/14/21 22:00 108 H 29 H 97 02/14/21 21:40 112 H 20 96 02/14/21 21:36 114 H 18 112/78 92 02/14/21 21:10 116 H 32 H 93 02/14/21 21:06 91 02/14/21 20:50 121 H 24 93 02/14/21 20:40 120 H 20 93 02/14/21 20:30 115 H 25 H 94 02/14/21 20:20 123 H 29 H 93 02/14/21 20:15 122 H 20 86 L 02/14/21 20:10 126 H 25 H 94 02/14/21 20:00 124 H 20 94 02/14/21 19:50 123 H 24 93 02/14/21 19:40 128 H 20 124/80 91 02/14/21 19:30 134 H 22 92 02/14/21 19:20 125 H 25 H 91 02/14/21 19:15 128 H 25 H 90 02/14/21 19:06 96 02/14/21 19:02 38.1 C H 135 H 20 111/73 84 L Laboratory Results Laboratory Results WBC 4.21 K/uL (4.8-10.8) L 02/14/21 19:37 RBC 4.78 M/uL (4.7-6.1) 02/14/21 19:37 Hgb 14.7 g/dL (14.0-18.0) 02/14/21 19:37 Hct 42.2 % (42-52) 02/14/21 19:37 MCV 88.3 fL (80-100) 02/14/21 19:37 MCH 30.8 pg (25-34) 02/14/21 19:37 MCHC 34.8 g/dL (32-36) 02/14/21 19:37 RDW Std Deviation 40.6 fL (36.4-46.3) 02/14/21 19:37 RDW Coeff of Jen 12.6 % (11.5-14.5) 02/14/21 19:37 Plt Count 215 K/uL (130-400) 02/14/21 19:37 MPV 11.1 fL (7.4-10.4) H 02/14/21 19:37 Immature Gran % (Auto) 0.0 % 02/14/21 19:37 Neut % (Auto) 76.8 % 02/14/21 19:37 Lymph % (Auto) 12.6 % 02/14/21 19:37 [place] % (Auto) 10.2 % 02/14/21 19:37 Eos % (Auto) 0.2 % 02/14/21 19:37 Baso % (Auto) 0.2 % 02/14/21 19:37 Neut # (Auto) 3.23 K/uL (1.4-6.5) 02/14/21 19:37 Lymph # (Auto) 0.53 K/uL (1.2-3.4) L 02/14/21 19:37 [place] # (Auto) 0.43 K/uL (0.11-0.59) 02/14/21 19:37 Eos # (Auto) 0.01 K/uL (0-0.5) 02/14/21 19:37 Baso # (Auto) 0.01 K/uL (0-0.2) 02/14/21 19:37 Immature Gran # (Auto) 0.00 K/uL (0.00-0.02) 02/14/21 19:37 PT 10.3 Seconds (9.0-12.0) 02/14/21 20:16 INR 1.0 (0.9-1.1) 02/14/21 20:16 APTT 27.3 Seconds (21.0-31.0) 02/14/21 20:16 PTT Ratio 1.0 02/14/21 20:16 VBG pH 7.38 (7.36-7.41) 02/14/21 20:15 VBG pCO2 37 mmHg (38-50) L 02/14/21 20:15 VBG pO2 17 mmHg 02/14/21 20:15 VBG HCO3 21 mmol/L 02/14/21 20:15 VBG O2 Saturation < 60.0 % 02/14/21 20:15 VBG Base Excess -3.5 mEq/L 02/14/21 20:15 Barometric Pressure 732.8 mm/Hg 02/14/21 20:15 Sodium 130 mmol/L (136-145) L 02/14/21 19:37 Potassium 4.7 mmol/L (3.5-5.1) 02/14/21 19:37 Chloride 100 mmol/L (98-107) 02/14/21 19:37 Carbon Dioxide 20 mmol/L (21-32) L 02/14/21 19:37 Anion Gap 10.0 (3-11) 02/14/21 19:37 BUN 46 mg/dl (7-18) H 02/14/21 19:37 Creatinine 2.33 mg/dl (0.6-1.4) H 02/14/21 19:37 Est Cr Clr Drug Dosing 34.5 ml/min 02/14/21 19:37 Est GFR ( Amer) 34.4 ml/min 02/14/21 19:37 Est GFR (Non-Af Amer) 29.7 ml/min 02/14/21 19:37 BUN/Creatinine Ratio 19.9 (10-20) 02/14/21 19:37 Glucose 254 mg/dl (70-99) H 02/14/21 19:37 Lactate 1.7 mmol/L (0.4-2.0) 02/14/21 20:52 Calcium 8.8 mg/dl (8.5-10.1) 02/14/21 19:37 Total Bilirubin 0.5 mg/dl (0.2-1) 02/14/21 19:37 AST 97 U/L (15-37) H 02/14/21 19:37 ALT 84 U/L (12-78) H 02/14/21 19:37 Alkaline Phosphatase 40 U/L (45-117) L 02/14/21 19:37 Troponin I 0.058 ng/ml (0-0.045) H* 02/14/21 19:37 Total Protein 8.0 gm/dl (6.4-8.2) 02/14/21 19:37 Albumin 3.0 gm/dl (3.4-5.0) L 02/14/21 19:37 Globulin 5.0 gm/dl (2.5-4.0) H 02/14/21 19:37 Albumin/Globulin Ratio 0.6 (0.9-2) L 02/14/21 19:37 Procalcitonin 1.30 ng/ml (0-0.5) H 02/14/21 20:16 Specimen Hemolysis 02/14/21 19:37 COVID-19 Eval Order Covid19 at [facility] 02/14/21 19:37 SARS-CoV-2 (PCR) POSITIVE (Negative) A* 02/14/21 19:37 Diagnostic Findings CTA chest - per STAT rad: Diffuse bilateral multifocal pneumonitis. No pulmonary embolus or aortic dissection. Slightly limited exam for evaluation of pulmonary arteries due to partially missed the bolus and better opacification of the pulmonary veins with contrast. There is no gross pulmonary embolus seen. Noral cardiac size. Visualized upper abdominal structures unremarkable. Nonspecific degenerative disease of the spine. ECG Additional Comments: EKG with ST at 130, normal axis, NF=538, QRS=84, PDz=205, no acute ischemic changes Code Status & VTE Plan VTE Prophylaxis Plan VTE Prophylaxis will be ordered: Yes PG Care Time/CCT Total # of Minutes Spent Total Time Spent with Patient: Total time spent is greater than 50% in coordination of care (as documented) at patient's floor/unit and/or counseling patient: Coding Level of Care Code 10966 Initial Inpt Care Lvl 3 Diagnoses Hypercholesterolemia E78.00 Esophageal reflux K21.9 COVID-19 U07.1 Type 2 diabetes mellitus E11.9 LYLA (acute kidney injury) N17.9 Elevated troponin R77.8
[2021-02-15] MEDS ORDERED: DEXTROSE 50% 50 ML SYRINGE IV PRN (02:13)
[2021-02-15] MEDS ORDERED: GLUCOSE 10 TABS/TUBE PO PRN (02:13)
[2021-02-15] MEDS ORDERED: GLUCAGON FOR INJ 1 MG VIAL SQ PRN (02:13)
[2021-02-15] MEDS ORDERED: LACTATED RINGER'S 1,000 ML IV SCH ×2 (02:13→21:45)
[2021-02-15] MEDS ORDERED: GLUCOSE 40% GEL 15 GM TUBE PO PRN (02:13)
[2021-02-15] MEDS ORDERED: ACETAMINOPHEN 325 MG TAB PO PRN (02:13)
[2021-02-15] MEDS ORDERED: BENZONATATE 100 MG CAPSULE PO PRN (02:13)
[2021-02-15] MEDS ORDERED: ONDANSETRON INJ 2 MG/ML 2 ML VIAL IV PRN (02:13)
[2021-02-15 02:44] LABS: Magnesium 1.6 mg/dl (1.8-2.4); Phosphorus 3.2 mg/dl (2.5-4.9)
[2021-02-15] MEDS: INSULIN ASPART 100 UNITS/ML 3 ML PEN SC SCH ×5 (03:04→21:59)
[2021-02-15 03:21] LABS: Appearance Urine Clear (Clear); Bilirubin Urine Negative (Negative); Blood Urine 1+ (Negative); Color Urine Yellow; Glucose Urine UA 2+ (Negative); Ketones Urine Trace (Negative); Leukocyte Esterase Urine Negative (Negative); Nitrite Urine Negative (Negative); Protein Urine 2+ (Negative); RBC Urine Automated 0-4 /hpf (0-4); Specific Gravity Urine > 1.045 (1.000-1.030); Urobilinogen Urine Negative (Negative)
[2021-02-15 03:46] LABS: Bacteria Urine Automated 1+ (Negative); Cast Urine Automated 0 /lpf (0-5)
[2021-02-15 08:03] LABS: Basophils # (auto) 0.01 K/uL (0-0.2); Basophils % (auto) 0.5 %; Hematocrit (blood only) 37.4 % (42-52); Hemoglobin 12.7 g/dL (14.0-18.0); Lymphocytes # (auto) 0.58 K/uL (1.2-3.4); Lymphocytes % (auto) 30.7 %; Mean Corpuscular Hemoglobin 30.1 pg (25-34); Mean Corpuscular Volume 88.6 fL (80-100); Mean Platelet Volume 10.4 fL (7.4-10.4); Monocytes # (auto) 0.25 K/uL (0.11-0.59); Monocytes % (auto) 13.2 %; Neutrophils # (auto) 1.05 K/uL (1.4-6.5); Neutrophils % (auto) 55.6 %; Platelet Count 228 K/uL (130-400); RDW Coefficient of Variation 12.5 % (11.5-14.5); RDW Standard Deviation 40.1 fL (36.4-46.3); Red Blood Count 4.22 M/uL (4.7-6.1); White Blood Count 1.89 K/uL (4.8-10.8)
[2021-02-15 08:13] LABS: D Dimer 1210 ug/L FEU (0-500)
--- NOTE | 2021-02-15 08:18 | CT Scan Report ---
CT ANGIOGRAPHY OF THE CHEST, PULMONARY EMBOLUS PROTOCOL CLINICAL HISTORY: Dyspnea, hypoxia, COVID + COMPARISON STUDY: Chest radiograph October 03, 2016. TECHNIQUE: Following IV administration of 113 mL of Optiray, helical axial images of the chest were o btained utilizing the pulmonary embolus protocol. Maximal intensity projections and sagittal and cor onal reformats were viewed on an independent 3D workstation. IV contrast was administered without co mplication. Automated exposure control was utilized for the study. A dose lowering technique was ut ilized adhering to the principles of ALARA. CT DOSE: 514.61 mGycm FINDINGS: Upper lobe pulmonary arteries are suboptimally assessed given suboptimal opacification. No lower lobe pulmonary emboli are identified. There is no thoracic aortic dissection. Size of the hear t is normal. There is extensive coronary artery calcification. No pericardial effusion is present. Ex tensive groundglass opacities are noted. These are most pronounced within the bilateral lower lobes. The central airways are patent. There is no pneumothorax or pleural effusion. There is no thoracic ly mphadenopathy. There is possible hepatic steatosis. IMPRESSION: 1. No pulmonary emboli identified however evaluation of upper lobe pulmonary arteries significantly c ompromised by suboptimal opacification. 2. Extensive ground glass opacities within lungs consistent with viral pneumonia. 3. Extensive coronary artery calcification. ACT 112: Negative or not required by law. Electronically signed by: Reagan Landaverde M.D. 02/15/2021 8:16 AM
[2021-02-15] MEDS: ROSUVASTATIN CALCIUM 10 MG TAB PO SCH (08:38)
[2021-02-15] MEDS: dexAMETHasone 6 MG in SYRINGE 0 ML IV SCH (08:38)
[2021-02-15] MEDS: ENOXAPARIN INJ 40 MG/0.4 ML SYR SQ SCH ×2 (08:38→21:59)
[2021-02-15] MEDS: PANTOprazole 40 MG TAB PO SCH (08:39)
[2021-02-15 08:48] LABS: Alanine Aminotransferase 95 U/L (12-78); Albumin Level 2.4 gm/dl (3.4-5.0); Alkaline Phosphatase 37 U/L (45-117); Aspartate Aminotransferase 125 U/L (15-37); BUN Creatinine Ratio 25.2 (10-20); Bilirubin Direct < 0.1 mg/dl (0-0.2); Bilirubin,Total 0.4 mg/dl (0.2-1); Blood Urea Nitrogen 47 mg/dl (7-18); Calcium 8.4 mg/dl (8.5-10.1); Carbon Dioxide 21 mmol/L (21-32); Chloride 102 mmol/L (98-107); Creatine Kinase 507 U/L (39-308); Creatinine Clr Calc Pharmacy 43.2 ml/min; Est GFR (African American) 44.9 ml/min; Est GFR (Non-African American) 38.8 ml/min; Glucose 375 mg/dl (70-99); Potassium 5.3 mmol/L (3.5-5.1); Sodium 132 mmol/L (136-145); Total Protein 6.9 gm/dl (6.4-8.2)
[2021-02-15 08:53] LABS: Estimated Average Glucose 212 mg/dl
[2021-02-15 08:57] LABS: Ferritin 5401.4 ng/ml (8-388); NT Pro B Type Natriuretic Pept 31 pg/ml (0-900)
[2021-02-15 08:58] LABS: Troponin I 0.059 ng/ml (0-0.045)
[2021-02-15 08:59] LABS: Beta-Hydroxybutyrate 5.52 mg/dl (0.2-2.81)
[2021-02-15] MEDS ORDERED: INSULIN GLARGINE SOLOSTAR 100 UNITS/ML 3 ML PEN SC SCH ×2 (09:00→21:00)
[2021-02-15] MEDS ORDERED: PHARMACY GLYCEMIC MGMT CONSULT PRN (09:35)
[2021-02-15] MEDS ORDERED: INSULIN GLARGINE SOLOSTAR 100 UNITS/ML 3 ML PEN SC ONE (10:00)
[2021-02-15] MEDS ORDERED: INSULIN HUMAN NPH SC ONE (10:00)
--- NOTE | 2021-02-15 11:52 | Pharmacy Report ---
Pharmacy Glycemic Short Note 2 - Date of Service February 15, 2021 - Glycemic Short BSG Results (Last 24 hours): 02/14/21 02/15/21 02/15/21 19:37 02:16 02:19 Glucose 254 H POC Glucose 357 H* 362 H* 02/15/21 02/15/21 02/15/21 07:41 08:34 08:36 Glucose 375 H* POC Glucose 367 H* 400 H* OUTPATIENT ANTIDIABETIC REGIMEN: * Metformin 500mg PO BIDM * A1c = 9% ASSESSMENT: * 60yo T2DM male with poor outpatient control per recent A1c. Goal A1c <7% * Pt with SEVERE hyperglycemia secondary to poor baseline control, steroids, and illness (covid) * Will continue with SQ basal bolus insulin regimen for baseline needs - increase to high stress dosing for covid * Add weight based NPH to cover high dose steroids with dexamethasone 6mg IV daily. Rec dosing is 0.4 units/kg for doses of steroids 40mg prednisone {equivalent} or above. * Titrate based on BSG trends to maintain BSGs 110-140mg/dl range PLAN FOR INPATIENT GLYCEMIC CONTROL: * Hold outpatient oral diabetes medications * Basal insulin * Lantus 22 units SQ BID * Steroid induced hyperglycemia * NPH 35 units (0.4 units/kg) Sq daily with dexamethasone * Bolus insulin * NovoLog per scale ACHS or Q6hrs while NPO * Goal Range: Low 110 mg/dL - High 140 mg/dL * Correction Factor: 20 mg/dL/unit * Nutritional / Prandial insulin per carb ratio of 1 unit per 6 grams CHO consumed PLAN FOR DISCHARGE: * A1c = 9% * Goal A1c <7% * A1c is between 8% and 10% --> consider dual combination therapy * Metformin + additional agent listed below. 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 Dosage increases should be made in increments of 500 mg weekly, up to 2,000 mg/day PO, given in divided doses. Doses above 2000 mg/day may be better tolerated if divided and given 3 times per day with meals. Max: 2,550 mg/day PO, in divided doses * Pt w/o compelling indication for next specific drug class. Next add on agent to metformin is based on patient specific factors including efficacy, hypo risk, weight gain/loss, side effects, cost * Compelling need to minimize weight gain or promote weight loss: * GLP-1 receptor agonist: Decreases major adverse cardiovascular events, high efficacy, low hypo risk, weight loss, significant GI side effects (titrate low and slow) and risk of thyroid tumors, high cost * SGLT2 inhibitor: Decreases major adverse cardiovascular events, intermediate efficacy, low hypo risk, weight loss, /dehydration and risk of amputation (canagliflozin) side effects, high cost * Cost is a major issue: * Sulfonylurea: high efficacy, high hypo risk, weight gain, low cost * Thiazolidinedione (TZD): high efficacy, low hypo risk, weight gain, significant side effects (edema, HF, fxs), low cost * Human insulin (NPH or premixed formulations): high efficacy, weight gain, minimal side effects * Support Patient Self-Management * Healthy Lifestyle (diet, exercise, and smoking cessation) * Disease self-management (SMBG) * Prevention of complications (BP, Lipid goals, Immunizations) * Consider outpatient Diabetes Self-Management Education & Support
[2021-02-15 20:15] LABS: BUN Creatinine Ratio 30.9 (10-20); Calcium 8.9 mg/dl (8.5-10.1); Creatinine Clr Calc Pharmacy 47.8 ml/min; Est GFR (African American) 50.8 ml/min; Est GFR (Non-African American) 43.8 ml/min; Magnesium 2.1 mg/dl (1.8-2.4); Potassium 4.7 mmol/L (3.5-5.1)
[2021-02-15] MEDS ORDERED: PENDING 1/2NSS+20mEq KCL IVF SCH (20:15)
[2021-02-15] MEDS ORDERED: NovoLIN-R BOLUS FROM BAG IV ONE (20:15)
[2021-02-15] MEDS ORDERED: PENDING D5 1/2NS+40mEq KCL IVF SCH (20:15)
[2021-02-15] MEDS ORDERED: STAT IV Infusion **Titration per Protocol STA ×2 (20:15)
[2021-02-15] MEDS ORDERED: PENDING 1/2NSS+40mEq KCL IVF SCH (20:15)
[2021-02-15] MEDS ORDERED: PENDING D5 1/2NS+20mEq KCL IVF SCH (20:15)
[2021-02-15] MEDS ORDERED: NORMOSOL-R 1,000 ML IV SCH (20:15)
[2021-02-15] MEDS ORDERED: HHS GOAL RANGE 250-350 mg/dl ONE (20:15)
[2021-02-15] MEDS ORDERED: INSULIN REGULAR 250 UNITS in SODIUM CHLORIDE 0.9% 247.5 ML IV SCH (20:15)
[2021-02-15 20:31] LABS: Beta-Hydroxybutyrate 2.45 mg/dl (0.2-2.81)
--- NOTE | 2021-02-15 20:48 | History & Physical Bridge Note ---
Date of Service February 15, 2021 History & Physical Bridge Note I have examined the patient, reviewed the History & Physical and in the interval since the performance of the History & Physical I have noted the following changes of clinical significance:
[2021-02-15] MEDS ORDERED: REMDESIVIR 200 MG in SODIUM CHLORIDE 0.9% 210 ML IV ONE (21:00)
[2021-02-15] MEDS ORDERED: INSULIN ASPART 100 UNITS/ML 3 ML PEN SC SCH (21:00)
[2021-02-15 21:19] LABS: BUN Creatinine Ratio 31.8 (10-20); Calcium 8.8 mg/dl (8.5-10.1); Creatinine Clr Calc Pharmacy 50.2 ml/min; Est GFR (African American) 53.8 ml/min; Est GFR (Non-African American) 46.4 ml/min; Magnesium 2.1 mg/dl (1.8-2.4); Potassium 4.6 mmol/L (3.5-5.1)
--- NOTE | 2021-02-15 21:22 | Hospitalist Progress Note ---
Date of Service February 15, 2021 Assessment & Plan (1) COVID-19: Plan: Alvin Leija is a 60yo male with history of HLP, DM and GERD presenting with Covid-19 PNA with hypoxia. Patient has had ongoing symptoms x 8 days [employer]. Hypoxic on arrival to 84% on room air which improved with supplemental O2 - currently on 4L. Patient is leukopenic with lymphopenia. WIth elevated troponin, PCT, LFTs, and significantly elevated inflammatory markers With LYLA as well CRP high at 10 CTA chest neg for PE but shows multifocal PNA Patient is unvaccinated -continue Dexamethasone 6mg IV daily -add on Remdesevir now that renal function is improved -Continue Azithromycin x 5 day course in setting of elevated Procalcitonin -Lovenox 40mg BID for DVT prophylaxis in moderately ill -if decompensates to need for HFNC or BiPAP in the first 72 hours, would be a candidate for baricitinib -continue supplemental O2 -prone positioning, IS, flutter valve ordered (2) Sepsis: Plan: Sepsis, POA with elevated procal, febrile, tachycardia, PNA on CXR treating for COVID and bacterial PNA with azithro (3) Elevated troponin: Plan: Patient states he has chest pain with coughing, otherwise no complaints ECG with age indeterminate inferior infarct -serial troponin trended downward c/w myocardial demand ischemia in the setting of hypoxia and PNA (4) Type 2 diabetes mellitus: Plan: Chronic. Poorly controlled - last HgbA1C = 9 on 10/11/20. Patient on Metformin at home. States that his blood sugars have been over 200 for the last 8 days. GLucose here now in 300s-400s despite high doses of Lantus, NPH, and Novolog convert to insulin gtt no evidence of DKA or HHS follow lytes and replace as needed (5) LYLA (acute kidney injury): Plan: Elevated BUN of 46 and Cr of 2.33 from baseline of 18 and 1.05, respectively. Patient appears clinically dry on exam -belt loop maker improving to 1.6 this evening after IVFs Now with hyperglycemia as well give another 1 L of LR, but does NOT need continuous IVFs -Avoid nephrotoxic agents. Will hold Meloxicam and Lisinopril for now Follow BMP (6) Hypercholesterolemia: Plan: Chronic -Continue Rosuvastatin 10mg po daily (7) Hyperkalemia: Plan: K+ 5.3 this AM and now improved with insulin use on repeat labs 2/2 LYLA (8) Hypomagnesemia: Plan: replace with IV magnesium follow levels (9) Hypoxia: Plan: acute resp failure with hypoxia secondary to COVID PNA as above (10) Pneumonia: Plan: as above (11) Esophageal reflux: Plan: Chronic -Continue PPI Plan: Ppx - Lovenox 40mg BID Code - Full per discussion with patient Dispo - continued stay on med tele Admission and Anticipated Discharge Date Admission Date: February 15, 2021 Subjective pt reports feelin gbetter than when he came in last night. GLucose in 400s--> starting insulin gtt this evening. Remains on 4L Is urinating, no diarrhea tele with NSR and ST Review of Systems Review of Systems: All systems reviewed & are unremarkable except as noted in HPI & below Physical Exam Constitutional: WD/WN, vitals as above Neck: trachea midline, no thyromegaly Respiratory: normal respiratory effort and + cough Auscultation: + diminished lung sounds (throughout) Cardiovascular: RRR, no murmur, no edema Chest (Breasts): Chest: normal inspection of chest Gastrointestinal (Abdomen): normal bowel sounds, soft, nontender, no hepatosplenomegaly Musculoskeletal: Extremities: extremities normal to inspection; no cyanosis and no clubbing Skin: no rashes, warm and dry Neurologic: moves all extremities and awake; no focal motor deficits Psychiatric: A+Ox3, euthymic affect Lymphatic: no lymphedema Results & Data Results & Data ([facility]) Vital Signs (Past 12 Hours) Vital Signs Temp Pulse Pulse Resp BP Pulse Ox 02/15/21 16:30 36.6 C 94 H 18 112/66 91 02/15/21 16:28 86 L 02/15/21 15:19 102 H 02/15/21 12:11 36.4 C L 88 20 105/72 94 Laboratory Results labs reviewed PG Care Time/CCT Total # of Minutes Spent Total Time Spent with Patient: Total time spent is greater than 50% in coordination of care (as documented) at patient's floor/unit and/or counseling patient: Coding Level of Care Code None Diagnoses COVID-19 U07.1 Elevated troponin R77.8 LYLA (acute kidney injury) N17.9 Hypercholesterolemia E78.00 Esophageal reflux K21.9 Type 2 diabetes mellitus E11.9 Sepsis A41.9 Hyperkalemia E87.5 Hypomagnesemia E83.42 Hypoxia R09.02 Pneumonia J18.9
[2021-02-15 21:31] LABS: Beta-Hydroxybutyrate 2.08 mg/dl (0.2-2.81)
[2021-02-15] MEDS ORDERED: SODIUM CHLORIDE 0.9% 10ML FLUSH IV SCH (23:00)
[2021-02-15] MEDS: AZITHROMYCIN 250 MG in DEXTROSE 5% 250 ML IV SCH (23:56)
[2021-02-16 01:15] LABS: BUN Creatinine Ratio 34.3 (10-20); Calcium 8.8 mg/dl (8.5-10.1); Creatinine Clr Calc Pharmacy 54.2 ml/min; Est GFR (African American) 59.1 ml/min
[2021-02-16 01:16] LABS: Phosphorus 1.9 mg/dl (2.5-4.9)
[2021-02-16] MEDS: INSULIN GLARGINE SOLOSTAR 100 UNITS/ML 3 ML PEN SC SCH ×2 (05:22→20:34)
[2021-02-16 06:58] LABS: Basophils # (auto) 0.01 K/uL (0-0.2); Basophils % (auto) 0.2 %; Hematocrit (blood only) 35.8 % (42-52); Hemoglobin 12.6 g/dL (14.0-18.0); Immature Granulocytes # (auto) 0.01 K/uL (0.00-0.02); Immature Granulocytes % (auto) 0.2 %; Lymphocytes # (auto) 0.77 K/uL (1.2-3.4); Lymphocytes % (auto) 13.3 %; Mean Corpuscular Hemoglobin 30.3 pg (25-34); Mean Corpuscular Hgb Conc 35.2 g/dL (32-36); Mean Corpuscular Volume 86.1 fL (80-100); Mean Platelet Volume 11.3 fL (7.4-10.4); Monocytes # (auto) 0.58 K/uL (0.11-0.59); Neutrophils # (auto) 4.44 K/uL (1.4-6.5); Neutrophils % (auto) 76.3 %; Platelet Count 267 K/uL (130-400); RDW Coefficient of Variation 12.3 % (11.5-14.5); RDW Standard Deviation 39.4 fL (36.4-46.3); Red Blood Count 4.16 M/uL (4.7-6.1); White Blood Count 5.81 K/uL (4.8-10.8)
[2021-02-16 07:30] LABS: Calcium 8.7 mg/dl (8.5-10.1); Creatinine Clr Calc Pharmacy 57.7 ml/min; Est GFR (African American) 63.7 ml/min; Potassium 4.1 mmol/L (3.5-5.1)
[2021-02-16] MEDS: CARBOHYDRATES FOR HYPOGLYCEMIA PO PRN (08:10)
[2021-02-16] MEDS: dexAMETHasone 6 MG in SYRINGE 0 ML IV SCH (08:23)
[2021-02-16] MEDS: ENOXAPARIN INJ 40 MG/0.4 ML SYR SQ SCH ×2 (08:25→20:05)
[2021-02-16] MEDS: PANTOprazole 40 MG TAB PO SCH (08:25)
[2021-02-16] MEDS: ROSUVASTATIN CALCIUM 10 MG TAB PO SCH (08:25)
[2021-02-16] MEDS ORDERED: INSULIN HUMAN NPH SC SCH (09:00)
[2021-02-16] MEDS: INSULIN ASPART 100 UNITS/ML 3 ML PEN SC SCH ×4 (09:16→20:34)
[2021-02-16] MEDS ORDERED: PHARMACY GLYCEMIC MGMT CONSULT PRN (09:40)
--- NOTE | 2021-02-16 10:57 | Pharmacy Report ---
Pharmacy Glycemic Short Note 2 - Date of Service February 16, 2021 - Glycemic Short BSG Results (Last 24 hours): 02/15/21 02/15/21 02/15/21 12:04 12:06 16:34 Glucose POC Glucose 398 H* 449 H* 360 H* 02/15/21 02/15/21 02/15/21 16:35 19:35 19:57 Glucose 369 H* POC Glucose 375 H* 354 H* 02/15/21 02/15/21 02/15/21 19:59 20:43 21:56 Glucose 343 H* POC Glucose 345 H* 324 H* 02/15/21 02/16/21 02/16/21 23:06 00:03 00:36 Glucose 162 H POC Glucose 219 H 173 H 02/16/21 02/16/21 02/16/21 01:04 02:10 02:58 Glucose POC Glucose 160 H 137 H 110 H 02/16/21 02/16/21 02/16/21 06:18 08:07 08:08 Glucose 83 POC Glucose 63 L* 65 L* 02/16/21 08:37 Glucose POC Glucose 81 OUTPATIENT ANTIDIABETIC REGIMEN: * Metformin 500mg PO BIDM * A1c = 9% ASSESSMENT: 02/16 * Pt has received 111 units of insulin over the past 24hrs * 22 units of basal with Lantus NPH * 35 units of NPH for steroid induced hyperglycemia with dexamethasone 6mg IV * 54 units of bolus with NovoLog * BSGs continued to rise - severe hyperglycemia yesterday requiring IV insulin infusion overnight. * IV insulin infusion stopped early this morning and patient given 15 units of Lantus at ~0500 * Will continue with weight based SQ basal bolus insulin regimen for steroid induced hyperglycemia and titrate based on BSG trends. * Pt with LOW BSG this AM - discussed with nursing. Will hold AM insulin and re- check at lunch time. Will administer when BSG >120 mg/dl 02/15 * 60yo T2DM male with poor outpatient control per recent A1c. Goal A1c <7% * Pt with SEVERE hyperglycemia secondary to poor baseline control, steroids, and illness (covid) * Will continue with SQ basal bolus insulin regimen for baseline needs - increase to high stress dosing for covid * Add weight based NPH to cover high dose steroids with dexamethasone 6mg IV daily. Rec dosing is 0.4 units/kg for doses of steroids 40mg prednisone {equivalent} or above. * Titrate based on BSG trends to maintain BSGs 110-140mg/dl range PLAN FOR INPATIENT GLYCEMIC CONTROL: * Hold outpatient oral diabetes medications * Basal insulin * Lantus 15 units SQ BID * Steroid induced hyperglycemia * NPH 35 units (0.4 units/kg) Sq daily with dexamethasone * Bolus insulin * NovoLog per scale ACHS or Q6hrs while NPO * Goal Range: Low 110 mg/dL - High 140 mg/dL * Correction Factor: 25 mg/dL/unit * Nutritional / Prandial insulin per carb ratio of 1 unit per 9 grams CHO consumed PLAN FOR DISCHARGE: * A1c = 9% * Goal A1c <7% * A1c is between 8% and 10% --> consider dual combination therapy * Metformin + additional agent listed below. (B12 supplementation may be necessary with intermediate metformin) * Recommend maximizing/titrating metformin dosing: Continue to titrate metformin dosing upwards as recommended. Dosage increases should be made in increments of 500 mg weekly, up to 2,000 mg/day PO, given in divided doses. Doses above 2000 mg/day may be better tolerated if divided and given 3 times per day with meals. Max: 2,550 mg/day PO, in divided doses * Pt w/o compelling indication for next specific drug class. Next add on agent to metformin is based on patient specific factors including efficacy, hypo risk, weight gain/loss, side effects, cost * Compelling need to minimize weight gain or promote weight loss: * GLP-1 receptor agonist: Decreases major adverse cardiovascular events, high efficacy, low hypo risk, weight loss, significant GI side effects (titrate low and slow) and risk of thyroid tumors, high cost * SGLT2 inhibitor: Decreases major adverse cardiovascular events, intermediate efficacy, low hypo risk, weight loss, /dehydration and risk of amputation (canagliflozin) side effects, high cost * Cost is a major issue: * Sulfonylurea: high efficacy, high hypo risk, weight gain, low cost * Thiazolidinedione (TZD): high efficacy, low hypo risk, weight gain, significant side effects (edema, HF, fxs), low cost * Human insulin (NPH or premixed formulations): high efficacy, weight gain, minimal side effects * Support Patient Self-Management * Healthy Lifestyle (diet, exercise, and smoking cessation) * Disease self-management (SMBG) * Prevention of complications (BP, Lipid goals, Immunizations) * Consider outpatient Diabetes Self-Management Education & Support
--- NOTE | 2021-02-16 11:32 | Electrocardiogram Report ---
Test Reason : Blood Pressure : / mmHG Vent. Rate : 130 BPM Atrial Rate : 130 BPM P-R Int : 130 ms QRS Dur : 084 ms QT Int : 288 ms P-R-T Axes : 050 -02 040 degrees QTc Int : 423 ms Sinus tachycardia Inferior infarct , age undetermined Abnormal ECG When compared with ECG of 11-DEC-2011 02:55, Vent. rate has increased BY 66 BPM QRS duration has decreased Confirmed by Andres Le ([id number]) on 02/16/2021 11:32:05 AM Referred By: Alexx Ayala Confirmed By:Andres Le
[2021-02-16] MEDS: POT PHOSPHATE MONOBASIC W/ SOD TAB PO SCH ×3 (12:07→20:04)
--- NOTE | 2021-02-16 17:12 | Hospitalist Progress Note ---
Date of Service February 16, 2021 Assessment & Plan (1) COVID-19: Plan: Alvin Leija is a 60yo male with history of HLP, DM and GERD presenting with Covid-19 PNA with hypoxia. 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 Hypoxic on arrival to 84% on room air which improved with supplemental O2 - remains, but pulse ox is improving up to on 4L mid 90s today Patient is leukopenic with lymphopenia. WIth elevated troponin, PCT, LFTs, and significantly elevated inflammatory markers With LYLA as well which is now improving CRP high at 10 CTA chest neg for PE but shows multifocal PNA Patient is unvaccinated -continue Dexamethasone 6mg IV daily x10-day course or stop if improves higher today given severe hyperglycemia -Continue Remdesevir now that renal function is improved x5-day course-last day of treatment will be 02/19-last day of treatment will be 02/18 -Continue Azithromycin x 5 day course in setting of elevated Procalcitonin -Lovenox 40mg BID for DVT prophylaxis in moderately ill -if decompensates to need for HFNC or BiPAP in the first 72 hours, would be a candidate for baricitinib -continue supplemental O2 -prone positioning encouraged, IS, flutter valve ordered (2) Sepsis: Plan: Sepsis, POA with elevated procal, febrile, tachycardia, PNA on CXR treating for COVID and bacterial PNA with azithro (3) Elevated troponin: Plan: Patient states he has chest pain with coughing, otherwise no complaints ECG with age indeterminate inferior infarct -serial troponin trended downward c/w myocardial demand ischemia in the setting of hypoxia and PNA (4) Type 2 diabetes mellitus: Plan: Chronic. Poorly controlled - last HgbA1C = 9 on 10/11/20. Patient on Metformin at home. States that his blood sugars have been over 200 for the last 8 days. GLucose here spiked into the 300s-400s despite high doses of Lantus, NPH, and Novolog first 24 hours converted to insulin gtt and now is weaned off of this and back on basal bolus insulin along with NPH Glucose now in the 200s no evidence of DKA or HHS follow lytes and replace as needed-we'll give p.o. Neutra-Phos today (5) LYLA (acute kidney injury): Plan: Elevated BUN of 46 and Cr of 2.33 from baseline of 18 and 1.05, respectively. 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 -Hold Meloxicam and Lisinopril -Discontinue IV fluids Follow BMP (6) Hypercholesterolemia: Plan: Chronic -Continue Rosuvastatin 10mg po daily (7) Hyperkalemia: Plan: K+ 5.3 shortly after admission but now improved with insulin use 2/2 LYLA Follow BMP (8) Hypomagnesemia: Plan: Replaced and improved (9) Hypoxia: Plan: acute resp failure with hypoxia secondary to COVID PNA as above (10) Pneumonia: Plan: as above Blood cultures-no growth to date (11) Esophageal reflux: Plan: Chronic -Continue PPI Plan: Ppx - Lovenox 40mg BID Code - Full per discussion with patient Dispo - continued stay on med tele Admission and Anticipated Discharge Date Admission Date: February 15, 2021 Subjective Patient feeling better today with energy level and strength. Still having coughing fits especially after using incentive spirometry and flutter valve. Feels somewhat short of breath with ambulation to the bathroom and back. Remains on 4 L. His fingertips are hurting from all of the glucose checks. No diarrhea. His appetite is improved and he is eating and drinking well. Telemetry with normal sinus rhythm with rates in the 60s to 90s Review of Systems Review of Systems: All systems reviewed & are unremarkable except as noted in HPI & below Physical Exam Constitutional: WD/WN, vitals as above Eyes: + anicteric sclerae Neck: trachea midline, no thyromegaly Respiratory: normal respiratory effort and + cough Auscultation: + diminished lung sounds (throughout) and + crackles (Bilateral lower and middle lung [place]); no wheezes Cardiovascular: RRR, no murmur, no edema Chest (Breasts): Chest: normal inspection of chest Gastrointestinal (Abdomen): normal bowel sounds, soft, nontender, no he patosplenomegaly Musculoskeletal: Extremities: extremities normal to inspection; no cyanosis and no clubbing Skin: no rashes, warm and dry Neurologic: moves all extremities and awake; no focal motor deficits Psychiatric: A+Ox3, euthymic affect Lymphatic: no lymphedema Results & Data Results & Data ([facility]) Vital Signs (Past 12 Hours) Vital Signs Temp Pulse Pulse Resp BP Pulse Ox 02/16/21 15:49 36.5 C 80 16 127/80 93 02/16/21 15:35 78 02/16/21 11:49 76 02/16/21 11:12 36.7 C 82 19 125/85 92 02/16/21 07:37 90 02/16/21 07:34 36.6 C 80 16 128/76 90 Laboratory Results 02/16/21 02/16/21 02/16/21 Range/Units 15:46 11:10 08:37 WBC (4.8-10.8) K/uL RBC (4.7-6.1) M/uL Hgb (14.0-18.0) g/dL Hct (42-52) % MCV (80-100) fL MCH (25-34) pg MCHC (32-36) g/dL RDW Std Deviation (36.4-46.3) fL RDW Coeff of Jen (11.5-14.5) % Plt Count (130-400) K/uL MPV (7.4-10.4) fL Immature Gran % (Auto) % Neut % (Auto) % Lymph % (Auto) % [place] % (Auto) % Eos % (Auto) % Baso % (Auto) % Neut # (Auto) (1.4-6.5) K/uL Lymph # (Auto) (1.2-3.4) K/uL [place] # (Auto) (0.11-0.59) K/uL Eos # (Auto) (0-0.5) K/uL Baso # (Auto) (0-0.2) K/uL Immature Gran # (Auto) (0.00-0.02) K/uL VBG pH (7.36-7.41) Sodium (136-145) mmol/L Potassium (3.5-5.1) mmol/L Chloride (98-107) mmol/L Carbon Dioxide (21-32) mmol/L Anion Gap (3-11) BUN (7-18) mg/dl Creatinine (0.6-1.4) mg/dl Est Cr Clr Drug Dosing ml/min Est GFR ( Amer) ml/min Est GFR (Non-Af Amer) ml/min BUN/Creatinine Ratio (10-20) Glucose (70-99) mg/dl POC Glucose 263 H 260 H 81 (70-99) mg/dl Calcium (8.5-10.1) mg/dl Phosphorus (2.5-4.9) mg/dl Magnesium (1.8-2.4) mg/dl Beta-Hydroxybutyric Acd (0.2-2.81) mg/dl 02/16/21 02/16/21 02/16/21 Range/Units 08:08 08:07 06:18 WBC (4.8-10.8) K/uL RBC (4.7-6.1) M/uL Hgb (14.0-18.0) g/dL Hct (42-52) % MCV (80-100) fL MCH (25-34) pg MCHC (32-36) g/dL RDW Std Deviation (36.4-46.3) fL RDW Coeff of Jen (11.5-14.5) % Plt Count (130-400) K/uL MPV (7.4-10.4) fL Immature Gran % (Auto) % Neut % (Auto) % Lymph % (Auto) % [place] % (Auto) % Eos % (Auto) % Baso % (Auto) % Neut # (Auto) (1.4-6.5) K/uL Lymph # (Auto) (1.2-3.4) K/uL [place] # (Auto) (0.11-0.59) K/uL Eos # (Auto) (0-0.5) K/uL Baso # (Auto) (0-0.2) K/uL Immature Gran # (Auto) (0.00-0.02) K/uL VBG pH (7.36-7.41) Sodium 136 (136-145) mmol/L Potassium 4.1 (3.5-5.1) mmol/L Chloride 109 H (98-107) mmol/L Carbon Dioxide 21 (21-32) mmol/L Anion Gap 6.0 (3-11) BUN 49 H (7-18) mg/dl Creatinine 1.40 (0.6-1.4) mg/dl Est Cr Clr Drug Dosing 57.7 ml/min Est GFR ( Amer) 63.7 ml/min Est GFR (Non-Af Amer) 55.0 ml/min BUN/Creatinine Ratio 35.0 H (10-20) Glucose 83 (70-99) mg/dl POC Glucose 65 L* 63 L* (70-99) mg/dl Calcium 8.7 (8.5-10.1) mg/dl Phosphorus (2.5-4.9) mg/dl Magnesium (1.8-2.4) mg/dl Beta-Hydroxybutyric Acd (0.2-2.81) mg/dl 02/16/21 02/16/21 02/16/21 Range/Units 06:18 02:58 02:10 WBC 5.81 (4.8-10.8) K/uL RBC 4.16 L (4.7-6.1) M/uL Hgb 12.6 L (14.0-18.0) g/dL Hct 35.8 L (42-52) % MCV 86.1 (80-100) fL MCH 30.3 (25-34) pg MCHC 35.2 (32-36) g/dL RDW Std Deviation 39.4 (36.4-46.3) fL RDW Coeff of Jen 12.3 (11.5-14.5) % Plt Count 267 (130-400) K/uL MPV 11.3 H (7.4-10.4) fL Immature Gran % (Auto) 0.2 % Neut % (Auto) 76.3 % Lymph % (Auto) 13.3 % [place] % (Auto) 10.0 % Eos % (Auto) 0.0 % Baso % (Auto) 0.2 % Neut # (Auto) 4.44 (1.4-6.5) K/uL Lymph # (Auto) 0.77 L (1.2-3.4) K/uL [place] # (Auto) 0.58 (0.11-0.59) K/uL Eos # (Auto) 0.00 (0-0.5) K/uL Baso # (Auto) 0.01 (0-0.2) K/uL Immature Gran # (Auto) 0.01 (0.00-0.02) K/uL VBG pH (7.36-7.41) Sodium (136-145) mmol/L Potassium (3.5-5.1) mmol/L Chloride (98-107) mmol/L Carbon Dioxide (21-32) mmol/L Anion Gap (3-11) BUN (7-18) mg/dl Creatinine (0.6-1.4) mg/dl Est Cr Clr Drug Dosing ml/min Est GFR ( Amer) ml/min Est GFR (Non-Af Amer) ml/min BUN/Creatinine Ratio (10-20) Glucose (70-99) mg/dl POC Glucose 110 H 137 H (70-99) mg/dl Calcium (8.5-10.1) mg/dl Phosphorus (2.5-4.9) mg/dl Magnesium (1.8-2.4) mg/dl Beta-Hydroxybutyric Acd (0.2-2.81) mg/dl 02/16/21 02/16/21 02/16/21 Range/Units 01:04 00:36 00:36 WBC (4.8-10.8) K/uL RBC (4.7-6.1) M/uL Hgb (14.0-18.0) g/dL Hct (42-52) % MCV (80-100) fL MCH (25-34) pg MCHC (32-36) g/dL RDW Std Deviation (36.4-46.3) fL RDW Coeff of Jen (11.5-14.5) % Plt Count (130-400) K/uL MPV (7.4-10.4) fL Immature Gran % (Auto) % Neut % (Auto) % Lymph % (Auto) % [place] % (Auto) % Eos % (Auto) % Baso % (Auto) % Neut # (Auto) (1.4-6.5) K/uL Lymph # (Auto) (1.2-3.4) K/uL [place] # (Auto) (0.11-0.59) K/uL Eos # (Auto) (0-0.5) K/uL Baso # (Auto) (0-0.2) K/uL Immature Gran # (Auto) (0.00-0.02) K/uL VBG pH 7.38 (7.36-7.41) Sodium 135 L (136-145) mmol/L Potassium 4.0 (3.5-5.1) mmol/L Chloride 108 H (98-107) mmol/L Carbon Dioxide 19 L (21-32) mmol/L Anion Gap 8.0 (3-11) BUN 51 H (7-18) mg/dl Creatinine 1.49 H (0.6-1.4) mg/dl Est Cr Clr Drug Dosing 54.2 ml/min Est GFR ( Amer) 59.1 ml/min Est GFR (Non-Af Amer) 51.0 ml/min BUN/Creatinine Ratio 34.3 H (10-20) Glucose 162 H (70-99) mg/dl POC Glucose 160 H (70-99) mg/dl Calcium 8.8 (8.5-10.1) mg/dl Phosphorus 1.9 L (2.5-4.9) mg/dl Magnesium 2.0 (1.8-2.4) mg/dl Beta-Hydroxybutyric Acd (0.2-2.81) mg/dl 02/16/21 02/15/21 02/15/21 Range/Units 00:03 23:06 21:56 WBC (4.8-10.8) K/uL RBC (4.7-6.1) M/uL Hgb (14.0-18.0) g/dL Hct (42-52) % MCV (80-100) fL MCH (25-34) pg MCHC (32-36) g/dL RDW Std Deviation (36.4-46.3) fL RDW Coeff of Jen (11.5-14.5) % Plt Count (130-400) K/uL MPV (7.4-10.4) fL Immature Gran % (Auto) % Neut % (Auto) % Lymph % (Auto) % [place] % (Auto) % Eos % (Auto) % Baso % (Auto) % Neut # (Auto) (1.4-6.5) K/uL Lymph # (Auto) (1.2-3.4) K/uL [place] # (Auto) (0.11-0.59) K/uL Eos # (Auto) (0-0.5) K/uL Baso # (Auto) (0-0.2) K/uL Immature Gran # (Auto) (0.00-0.02) K/uL VBG pH (7.36-7.41) Sodium (136-145) mmol/L Potassium (3.5-5.1) mmol/L Chloride (98-107) mmol/L Carbon Dioxide (21-32) mmol/L Anion Gap (3-11) BUN (7-18) mg/dl Creatinine (0.6-1.4) mg/dl Est Cr Clr Drug Dosing ml/min Est GFR ( Amer) ml/min Est GFR (Non-Af Amer) ml/min BUN/Creatinine Ratio (10-20) Glucose (70-99) mg/dl POC Glucose 173 H 219 H 324 H* (70-99) mg/dl Calcium (8.5-10.1) mg/dl Phosphorus (2.5-4.9) mg/dl Magnesium (1.8-2.4) mg/dl Beta-Hydroxybutyric Acd (0.2-2.81) mg/dl 02/15/21 02/15/21 02/15/21 Range/Units 20:43 20:43 19:59 WBC (4.8-10.8) K/uL RBC (4.7-6.1) M/uL Hgb (14.0-18.0) g/dL Hct (42-52) % MCV (80-100) fL MCH (25-34) pg MCHC (32-36) g/dL RDW Std Deviation (36.4-46.3) fL RDW Coeff of Jen (11.5-14.5) % Plt Count (130-400) K/uL MPV (7.4-10.4) fL Immature Gran % (Auto) % Neut % (Auto) % Lymph % (Auto) % [place] % (Auto) % Eos % (Auto) % Baso % (Auto) % Neut # (Auto) (1.4-6.5) K/uL Lymph # (Auto) (1.2-3.4) K/uL [place] # (Auto) (0.11-0.59) K/uL Eos # (Auto) (0-0.5) K/uL Baso # (Auto) (0-0.2) K/uL Immature Gran # (Auto) (0.00-0.02) K/uL VBG pH 7.42 H (7.36-7.41) Sodium 132 L (136-145) mmol/L Potassium 4.6 (3.5-5.1) mmol/L Chloride 104 (98-107) mmol/L Carbon Dioxide 19 L (21-32) mmol/L Anion Gap 9.0 (3-11) BUN 51 H (7-18) mg/dl Creatinine 1.61 H (0.6-1.4) mg/dl Est Cr Clr Drug Dosing 50.2 ml/min Est GFR ( Amer) 53.8 ml/min Est GFR (Non-Af Amer) 46.4 ml/min BUN/Creatinine Ratio 31.8 H (10-20) Glucose 343 H* (70-99) mg/dl POC Glucose 345 H* (70-99) mg/dl Calcium 8.8 (8.5-10.1) mg/dl Phosphorus 2.0 L D (2.5-4.9) mg/dl Magnesium 2.1 (1.8-2.4) mg/dl Beta-Hydroxybutyric Acd 2.08 (0.2-2.81) mg/dl 02/15/21 02/15/21 Range/Units 19:57 19:35 WBC (4.8-10.8) K/uL RBC (4.7-6.1) M/uL Hgb (14.0-18.0) g/dL Hct (42-52) % MCV (80-100) fL MCH (25-34) pg MCHC (32-36) g/dL RDW Std Deviation (36.4-46.3) fL RDW Coeff of Jen (11.5-14.5) % Plt Count (130-400) K/uL MPV (7.4-10.4) fL Immature Gran % (Auto) % Neut % (Auto) % Lymph % (Auto) % [place] % (Auto) % Eos % (Auto) % Baso % (Auto) % Neut # (Auto) (1.4-6.5) K/uL Lymph # (Auto) (1.2-3.4) K/uL [place] # (Auto) (0.11-0.59) K/uL Eos # (Auto) (0-0.5) K/uL Baso # (Auto) (0-0.2) K/uL Immature Gran # (Auto) (0.00-0.02) K/uL VBG pH (7.36-7.41) Sodium 132 L (136-145) mmol/L Potassium 4.7 (3.5-5.1) mmol/L Chloride 104 (98-107) mmol/L Carbon Dioxide 20 L (21-32) mmol/L Anion Gap 8.0 (3-11) BUN 52 H (7-18) mg/dl Creatinine 1.69 H (0.6-1.4) mg/dl Est Cr Clr Drug Dosing 47.8 ml/min Est GFR ( Amer) 50.8 ml/min Est GFR (Non-Af Amer) 43.8 ml/min BUN/Creatinine Ratio 30.9 H (10-20) Glucose 369 H* (70-99) mg/dl POC Glucose 354 H* (70-99) mg/dl Calcium 8.9 (8.5-10.1) mg/dl Phosphorus (2.5-4.9) mg/dl Magnesium 2.1 (1.8-2.4) mg/dl Beta-Hydroxybutyric Acd 2.45 (0.2-2.81) mg/dl PG Care Time/CCT Total # of Minutes Spent Total Time Spent with Patient: Total time spent is greater than 50% in coordination of care (as documented) at patient's floor/unit and/or counseling patient: Coding Level of Care Code 60137 Subseq Hosp Care Lvl 3 Diagnoses COVID-19 U07.1 Sepsis A41.9 Elevated troponin R77.8 Type 2 diabetes mellitus E11.9 LYLA (acute kidney injury) N17.9 Hypercholesterolemia E78.00 Hyperkalemia E87.5 Hypomagnesemia E83.42 Hypoxia R09.02 Pneumonia J18.9 Esophageal reflux K21.9
[2021-02-16] MEDS: REMDESIVIR 100 MG in SODIUM CHLORIDE 0.9% 230 ML IV SCH (20:01)
[2021-02-16] MEDS: AZITHROMYCIN 250 MG in DEXTROSE 5% 250 ML IV SCH (22:00)
[2021-02-16] MEDS: SODIUM CHLORIDE 0.9% 10ML FLUSH IV SCH (22:05)
[2021-02-17] MEDS: INSULIN ASPART 100 UNITS/ML 3 ML PEN SC SCH ×4 (08:02→22:07)
[2021-02-17] MEDS: CARBOHYDRATES FOR HYPOGLYCEMIA PO PRN (08:03)
[2021-02-17 08:33] LABS: Hematocrit (blood only) 35.5 % (42-52); Hemoglobin 12.2 g/dL (14.0-18.0); Immature Granulocytes # (auto) 0.02 K/uL (0.00-0.02); Immature Granulocytes % (auto) 0.3 %; Lymphocytes # (auto) 0.76 K/uL (1.2-3.4); Lymphocytes % (auto) 10.5 %; Mean Corpuscular Hemoglobin 30.1 pg (25-34); Mean Corpuscular Hgb Conc 34.4 g/dL (32-36); Mean Corpuscular Volume 87.7 fL (80-100); Mean Platelet Volume 10.4 fL (7.4-10.4); Monocytes # (auto) 0.78 K/uL (0.11-0.59); Monocytes % (auto) 10.7 %; Neutrophils # (auto) 5.71 K/uL (1.4-6.5); Neutrophils % (auto) 78.5 %; Platelet Count 312 K/uL (130-400); RDW Coefficient of Variation 12.4 % (11.5-14.5); Red Blood Count 4.05 M/uL (4.7-6.1); White Blood Count 7.27 K/uL (4.8-10.8)
[2021-02-17] MEDS: ENOXAPARIN INJ 40 MG/0.4 ML SYR SQ SCH ×2 (08:45→22:05)
[2021-02-17] MEDS: dexAMETHasone 6 MG in SYRINGE 0 ML IV SCH (08:45)
[2021-02-17] MEDS: PANTOprazole 40 MG TAB PO SCH (08:47)
[2021-02-17] MEDS: ROSUVASTATIN CALCIUM 10 MG TAB PO SCH (08:47)
[2021-02-17 09:00] LABS: BUN Creatinine Ratio 30.7 (10-20); Calcium 8.5 mg/dl (8.5-10.1); Est GFR (African American) 88.2 ml/min; Est GFR (Non-African American) 76.1 ml/min; Magnesium 1.8 mg/dl (1.8-2.4); Potassium 3.6 mmol/L (3.5-5.1)
[2021-02-17] MEDS ORDERED: INSULIN HUMAN NPH SC SCH (09:00)
[2021-02-17 09:20] LABS: Phosphorus 3.7 mg/dl (2.5-4.9)
[2021-02-17] MEDS ORDERED: MAGNESIUM SULFATE / D5W 1 GM/100 ML BAG IV ONE (10:00)
--- NOTE | 2021-02-17 11:14 | Pharmacy Report ---
Pharmacy Glycemic Short Note 2 - Date of Service February 17, 2021 - Glycemic Short BSG Results (Last 24 hours): 02/16/21 02/16/21 02/16/21 11:10 15:46 19:57 Glucose POC Glucose 260 H 263 H 266 H 02/17/21 02/17/21 02/17/21 07:35 07:57 07:58 Glucose 69 L POC Glucose 63 L* 66 L* 02/17/21 08:42 Glucose POC Glucose 148 H OUTPATIENT ANTIDIABETIC REGIMEN: * Metformin 500mg PO BIDM * A1c = 9% ASSESSMENT: 02/17 * Pt has received 90 units of insulin over the past 24hrs * 30 units of basal with Lantus * 35 units of NPH for steroid induced hyperglycemia from dex 6mg IV * 25 units of bolus with NovoLog * BSGs all elevated yesterday. NPH was held in the morning for LOW fasting BSG and not given until lunch time. Hyperglycemia from dex without NPH * Pt LOW again this morning AM fasting. Will HOLD AM dose of Lantus. This will be a 50% reduction in basal insulin. * Increase NPH slightly since all BSGs elevated yesterday after dex. NPH only has a 12-18 hr duration of action therefor this increase shouldn't affect AM fasting BSG tomorrow. * Tighten CF/CR for steroid induced hyperglycemia 02/16 * Pt has received 111 units of insulin over the past 24hrs * 22 units of basal with Lantus NPH * 35 units of NPH for steroid induced hyperglycemia with dexamethasone 6mg IV * 54 units of bolus with NovoLog * BSGs continued to rise - severe hyperglycemia yesterday requiring IV insulin infusion overnight. * IV insulin infusion stopped early this morning and patient given 15 units of Lantus at ~0500 * Will continue with weight based SQ basal bolus insulin regimen for steroid induced hyperglycemia and titrate based on BSG trends. * Pt with LOW BSG this AM - discussed with nursing. Will hold AM insulin and re- check at lunch time. Will administer when BSG >120 mg/dl 02/15 * 60yo T2DM male with poor outpatient control per recent A1c. Goal A1c <7% * Pt with SEVERE hyperglycemia secondary to poor baseline control, steroids, and illness (covid) * Will continue with SQ basal bolus insulin regimen for baseline needs - increase to high stress dosing for covid * Add weight based NPH to cover high dose steroids with dexamethasone 6mg IV daily. Rec dosing is 0.4 units/kg for doses of steroids 40mg prednisone {equivalent} or above. * Titrate based on BSG trends to maintain BSGs 110-140mg/dl range PLAN FOR INPATIENT GLYCEMIC CONTROL: * Hold outpatient oral diabetes medications * Basal insulin * Lantus 15 units SQ HS only * Steroid induced hyperglycemia * NPH 70 units (0.45 units/kg) Sq daily with dexamethasone * Bolus insulin * NovoLog per scale ACHS or Q6hrs while NPO * Goal Range: Low 110 mg/dL - High 140 mg/dL * Correction Factor: 20 mg/dL/unit * Nutritional / Prandial insulin per carb ratio of 1 unit per 7 grams CHO c onsumed PLAN FOR DISCHARGE: * A1c = 9% * Goal A1c <7% * A1c is between 8% and 10% --> consider dual combination therapy * Metformin + additional agent listed below. (B12 supplementation may be necessary with mcc metformin) * Recommend maximizing/titrating metformin dosing: Continue to titrate metformin dosing upwards as recommended. Dosage increases should be made in increments of 500 mg weekly, up to 2,000 mg/day PO, given in divided doses. Doses above 2000 mg/day may be better tolerated if divided and given 3 times per day with meals. Max: 2,550 mg/day PO, in divided doses * Pt w/o compelling indication for next specific drug class. Next add on agent to metformin is based on patient specific factors including efficacy, hypo risk, weight gain/loss, side effects, cost * Compelling need to minimize weight gain or promote weight loss: * GLP-1 receptor agonist: Decreases major adverse cardiovascular events, high efficacy, low hypo risk, weight loss, significant GI side effects (titrate low and slow) and risk of thyroid tumors, high cost * SGLT2 inhibitor: Decreases major adverse cardiovascular events, intermediate efficacy, low hypo risk, weight loss, /dehydration and risk of amputation (canagliflozin) side effects, high cost * Cost is a major issue: * Sulfonylurea: high efficacy, high hypo risk, weight gain, low cost * Thiazolidinedione (TZD): high efficacy, low hypo risk, weight gain, significant side effects (edema, HF, fxs), low cost * Human insulin (NPH or premixed formulations): high efficacy, weight gain, minimal side effects * Support Patient Self-Management * Healthy Lifestyle (diet, exercise, and smoking cessation) * Disease self-management (SMBG) * Prevention of complications (BP, Lipid goals, Immunizations) * Consider outpatient Diabetes Self-Management Education & Support
[2021-02-17] MEDS ORDERED: ALBUTEROL 0.083% NEBU SOLN 3 ML VIAL NEB PRN (17:31)
--- NOTE | 2021-02-17 17:32 | Hospitalist Progress Note ---
Date of Service February 17, 2021 Assessment & Plan (1) COVID-19: Plan: Alvin Leija is a 60yo male with history of HLP, DM and GERD presenting with Covid-19 PNA with hypoxia. 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 Hypoxic on arrival to 84% on room air which improved with supplemental O2 - remains on 4L mid 90s today, but desats to low 80s on 4L with ambulation Patient is leukopenic with lymphopenia. WIth elevated troponin, PCT, LFTs, and significantly elevated inflammatory markers With LYLA as well which is now resolved CRP high at 10 CTA chest neg for PE but shows multifocal PNA Patient is unvaccinated -continue Dexamethasone 6mg IV daily x10-day course or stop if improves higher today given severe hyperglycemia -Continue Remdesevir now that renal function is improved x5-day course-last day of treatment will be 02/19-last day of treatment will be 02/18 -Continue Azithromycin x 5 day course in setting of elevated Procalcitonin -Lovenox 40mg BID for DVT prophylaxis in moderately ill -if decompensates to need for HFNC or BiPAP in the first 72 hours, would be a candidate for baricitinib -continue supplemental O2 -prone positioning encouraged, IS, flutter valve ordered -add nasal saline to prevent epistaxis (2) Sepsis: Plan: Sepsis, POA with elevated procal, febrile, tachycardia, PNA on CXR treating for COVID and bacterial PNA with azithro (3) Elevated troponin: Plan: Patient states he has chest pain with coughing, otherwise no complaints ECG with age indeterminate inferior infarct -serial troponin trended downward c/w myocardial demand ischemia in the setting of hypoxia and PNA (4) Type 2 diabetes mellitus: Plan: Chronic. Poorly controlled - last HgbA1C = 9 on 10/11/20. Patient on Metformin at home. States that his blood sugars have been over 200 for the last 8 days. GLucose here spiked into the 300s-400s despite high doses of Lantus, NPH, and Novolog first 24 hours converted to insulin gtt and now is weaned off of this and back on basal bolus insulin along with NPH Glucose now in the 200s no evidence of DKA or HHS follow lytes and replace as needed (5) LYLA (acute kidney injury): Plan: Elevated BUN of 46 and Cr of 2.33 from baseline of 18 and 1.05, respectively. 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 -Hold Meloxicam and Lisinopril Follow BMP (6) Hypercholesterolemia: Plan: Chronic -Continue Rosuvastatin 10mg po daily (7) Hyperkalemia: Plan: K+ 5.3 shortly after admission but now improved with insulin use 2/2 LYLA Follow BMP (8) Hypomagnesemia: Plan: Replaced and improved (9) Hypoxia: Plan: acute resp failure with hypoxia secondary to COVID PNA as above (10) Pneumonia: Plan: as above Blood cultures-no growth to date (11) Esophageal reflux: Plan: Chronic -Continue PPI Plan: Ppx - Lovenox 40mg BID Code - Full per discussion with patient Dispo - continued stay on med tele Admission and Anticipated Discharge Date Admission Date: February 15, 2021 Subjective Pt feeling better today. Was ambulating around the foot of his bed earlier and desatted to low 80s but recovered to the low 90s with rest. He denies any SOB with that. No CP, no diarrhea, and has good appetite. Review of Systems Review of Systems: All systems reviewed & are unremarkable except as noted in HPI & below did have some small amount of blood from nose today with blowing it Physical Exam Constitutional: WD/WN, vitals as above Eyes: + anicteric sclerae Neck: trachea midline, no thyromegaly Respiratory: normal respiratory effort and + cough Auscultation: + diminished lung sounds (throughout) and + crackles (Bilateral lower and middle lung [place]); no wheezes Cardiovascular: RRR, no murmur, no edema Chest (Breasts): Chest: normal inspection of chest Gastrointestinal (Abdomen): normal bowel sounds, soft, nontender, no hepatosplenomegaly Musculoskeletal: Extremities: extremities normal to inspection; no cyanosis and no clubbing Skin: no rashes, warm and dry Neurologic: moves all extremities and awake; no focal motor deficits Psychiatric: A+Ox3, euthymic affect Lymphatic: no lymphedema Results & Data Results & Data ([facility]) Vital Signs (Past 12 Hours) Vital Signs Temp Pulse Pulse Resp BP Pulse Ox 02/17/21 14:58 70 02/17/21 12:21 37.0 C 83 19 119/71 91 02/17/21 11:11 87 02/17/21 07:45 36.8 C 78 18 125/73 94 Laboratory Results 02/17/21 02/17/21 02/17/21 Range/Units 16:55 11:50 08:42 WBC (4.8-10.8) K/uL RBC (4.7-6.1) M/uL Hgb (14.0-18.0) g/dL Hct (42-52) % MCV (80-100) fL MCH (25-34) pg MCHC (32-36) g/dL RDW Std Deviation (36.4-46.3) fL RDW Coeff of Jen (11.5-14.5) % Plt Count (130-400) K/uL MPV (7.4-10.4) fL Immature Gran % (Auto) % Neut % (Auto) % Lymph % (Auto) % [place] % (Auto) % Eos % (Auto) % Baso % (Auto) % Neut # (Auto) (1.4-6.5) K/uL Lymph # (Auto) (1.2-3.4) K/uL [place] # (Auto) (0.11-0.59) K/uL Eos # (Auto) (0-0.5) K/uL Baso # (Auto) (0-0.2) K/uL Immature Gran # (Auto) (0.00-0.02) K/uL Sodium (136-145) mmol/L Potassium (3.5-5.1) mmol/L Chloride (98-107) mmol/L Carbon Dioxide (21-32) mmol/L Anion Gap (3-11) BUN (7-18) mg/dl Creatinine (0.6-1.4) mg/dl Est Cr Clr Drug Dosing ml/min Est GFR ( Amer) ml/min Est GFR (Non-Af Amer) ml/min BUN/Creatinine Ratio (10-20) Glucose (70-99) mg/dl POC Glucose 116 H 201 H 148 H (70-99) mg/dl Calcium (8.5-10.1) mg/dl Phosphorus (2.5-4.9) mg/dl Magnesium (1.8-2.4) mg/dl 02/17/21 02/17/21 02/17/21 Range/Units 07:58 07:57 07:35 WBC (4.8-10.8) K/uL RBC (4.7-6.1) M/uL Hgb (14.0-18.0) g/dL Hct (42-52) % MCV (80-100) fL MCH (25-34) pg MCHC (32-36) g/dL RDW Std Deviation (36.4-46.3) fL RDW Coeff of Jen (11.5-14.5) % Plt Count (130-400) K/uL MPV (7.4-10.4) fL Immature Gran % (Auto) % Neut % (Auto) % Lymph % (Auto) % [place] % (Auto) % Eos % (Auto) % Baso % (Auto) % Neut # (Auto) (1.4-6.5) K/uL Lymph # (Auto) (1.2-3.4) K/uL [place] # (Auto) (0.11-0.59) K/uL Eos # (Auto) (0-0.5) K/uL Baso # (Auto) (0-0.2) K/uL Immature Gran # (Auto) (0.00-0.02) K/uL Sodium 141 (136-145) mmol/L Potassium 3.6 (3.5-5.1) mmol/L Chloride 111 H (98-107) mmol/L Carbon Dioxide 23 (21-32) mmol/L Anion Gap 8.0 (3-11) BUN 33 H (7-18) mg/dl Creatinine 1.07 (0.6-1.4) mg/dl Est Cr Clr Drug Dosing 76.0 ml/min Est GFR ( Amer) 88.2 ml/min Est GFR (Non-Af Amer) 76.1 ml/min BUN/Creatinine Ratio 30.7 H (10-20) Glucose 69 L (70-99) mg/dl POC Glucose 66 L* 63 L* (70-99) mg/dl Calcium 8.5 (8.5-10.1) mg/dl Phosphorus 3.7 D (2.5-4.9) mg/dl Magnesium 1.8 (1.8-2.4) mg/dl 02/17/21 02/16/21 Range/Units 07:35 19:57 WBC 7.27 (4.8-10.8) K/uL RBC 4.05 L (4.7-6.1) M/uL Hgb 12.2 L (14.0-18.0) g/dL Hct 35.5 L (42-52) % MCV 87.7 (80-100) fL MCH 30.1 (25-34) pg MCHC 34.4 (32-36) g/dL RDW Std Deviation 40.0 (36.4-46.3) fL RDW Coeff of Jen 12.4 (11.5-14.5) % Plt Count 312 (130-400) K/uL MPV 10.4 (7.4-10.4) fL Immature Gran % (Auto) 0.3 % Neut % (Auto) 78.5 % Lymph % (Auto) 10.5 % [place] % (Auto) 10.7 % Eos % (Auto) 0.0 % Baso % (Auto) 0.0 % Neut # (Auto) 5.71 (1.4-6.5) K/uL Lymph # (Auto) 0.76 L (1.2-3.4) K/uL [place] # (Auto) 0.78 H (0.11-0.59) K/uL Eos # (Auto) 0.00 (0-0.5) K/uL Baso # (Auto) 0.00 (0-0.2) K/uL Immature Gran # (Auto) 0.02 (0.00-0.02) K/uL Sodium (136-145) mmol/L Potassium (3.5-5.1) mmol/L Chloride (98-107) mmol/L Carbon Dioxide (21-32) mmol/L Anion Gap (3-11) BUN (7-18) mg/dl Creatinine (0.6-1.4) mg/dl Est Cr Clr Drug Dosing ml/min Est GFR ( Amer) ml/min Est GFR (Non-Af Amer) ml/min BUN/Creatinine Ratio (10-20) Glucose (70-99) mg/dl POC Glucose 266 H (70-99) mg/dl Calcium (8.5-10.1) mg/dl Phosphorus (2.5-4.9) mg/dl Magnesium (1.8-2.4) mg/dl PG Care Time/CCT Total # of Minutes Spent Total Time Spent with Patient: Total time spent is greater than 50% in coordination of care (as documented) at patient's floor/unit and/or counseling patient: Coding Level of Care Code 24894 Subseq Hosp Care Lvl 2 Diagnoses COVID-19 U07.1 Sepsis A41.9 Elevated troponin R77.8 Type 2 diabetes mellitus E11.9 LYLA (acute kidney injury) N17.9 Hypercholesterolemia E78.00 Hyperkalemia E87.5 Hypomagnesemia E83.42 Hypoxia R09.02 Pneumonia J18.9 Esophageal reflux K21.9
[2021-02-17] MEDS ORDERED: SODIUM CHLORIDE 0.65% NA SOLN 45 ML (OCEAN) PRN (18:08)
[2021-02-17] MEDS: REMDESIVIR 100 MG in SODIUM CHLORIDE 0.9% 230 ML IV SCH (18:13)
[2021-02-17] MEDS: SODIUM CHLORIDE 0.9% 10ML FLUSH IV SCH (19:30)
[2021-02-17] MEDS ORDERED: INSULIN GLARGINE SOLOSTAR 100 UNITS/ML 3 ML PEN SC SCH (21:00)
[2021-02-17] MEDS: AZITHROMYCIN 250 MG in DEXTROSE 5% 250 ML IV SCH (22:05)
[2021-02-18] MEDS: CARBOHYDRATES FOR HYPOGLYCEMIA PO PRN (08:20)
[2021-02-18] MEDS ORDERED: INSULIN HUMAN NPH SC SCH ×2 (09:00)
[2021-02-18] MEDS: dexAMETHasone 6 MG in SYRINGE 0 ML IV SCH (09:18)
[2021-02-18] MEDS: INSULIN ASPART 100 UNITS/ML 3 ML PEN SC SCH ×4 (09:18→20:32)
[2021-02-18] MEDS: ENOXAPARIN INJ 40 MG/0.4 ML SYR SQ SCH ×2 (09:19→20:34)
[2021-02-18] MEDS: PANTOprazole 40 MG TAB PO SCH (09:20)
[2021-02-18] MEDS: ROSUVASTATIN CALCIUM 10 MG TAB PO SCH (09:20)
--- NOTE | 2021-02-18 12:53 | Pharmacy Report ---
Pharmacy Glycemic Short Note 2 - Date of Service February 18, 2021 - Glycemic Short BSG Results (Last 24 hours): 02/17/21 02/17/21 02/18/21 16:55 22:07 08:08 POC Glucose 116 H 82 56 L* 02/18/21 02/18/21 08:55 12:01 POC Glucose 152 H 217 H OUTPATIENT ANTIDIABETIC REGIMEN: * Metformin 500mg PO BIDM * A1c = 9% ASSESSMENT: 02/18: * Pt received total 76 units of insulin yesterday; 55 units basal (15 units Lantus + 40 units NPH) and 21 units bolus. * Fasting BSG today was 56 mg/dl. Lantus dose discontinued for tonight to prevent hypoglycemia tomorrow AM. * Yesterday, post prandial BSGs were 116mg/dl at dinner and 82 mg/dl at HS. Lowered NPH insulin this AM by 35%. I suspect this may have been too much lowering of insulin and BSG may trend up tonight. Will adjust as needed tomorrow. * Novolog CR was also loosened with lunch today. 02/17 * Pt has received 90 units of insulin over the past 24hrs * 30 units of basal with Lantus * 35 units of NPH for steroid induced hyperglycemia from dex 6mg IV * 25 units of bolus with NovoLog * BSGs all elevated yesterday. NPH was held in the morning for LOW fasting BSG and not given until lunch time. Hyperglycemia from dex without NPH * Pt LOW again this morning AM fasting. Will HOLD AM dose of Lantus. This will be a 50% reduction in basal insulin. * Increase NPH slightly since all BSGs elevated yesterday after dex. NPH only has a 12-18 hr duration of action therefor this increase shouldn't affect AM fasting BSG tomorrow. * Tighten CF/CR for steroid induced hyperglycemia 02/16 * Pt has received 111 units of insulin over the past 24hrs * 22 units of basal with Lantus NPH * 35 units of NPH for steroid induced hyperglycemia with dexamethasone 6mg IV * 54 units of bolus with NovoLog * BSGs continued to rise - severe hyperglycemia yesterday requiring IV insulin infusion overnight. * IV insulin infusion stopped early this morning and patient given 15 units of Lantus at ~0500 * Will continue with weight based SQ basal bolus insulin regimen for steroid induced hyperglycemia and titrate based on BSG trends. * Pt with LOW BSG this AM - discussed with nursing. Will hold AM insulin and re- check at lunch time. Will administer when BSG >120 mg/dl 02/15 * 60yo T2DM male with poor outpatient control per recent A1c. Goal A1c <7% * Pt with SEVERE hyperglycemia secondary to poor baseline control, steroids, and illness (covid) * Will continue with SQ basal bolus insulin regimen for baseline needs - increase to high stress dosing for covid * Add weight based NPH to cover high dose steroids with dexamethasone 6mg IV daily. Rec dosing is 0.4 units/kg for doses of steroids 40mg prednisone {equivalent} or above. * Titrate based on BSG trends to maintain BSGs 110-140mg/dl range PLAN FOR INPATIENT GLYCEMIC CONTROL: * Hold outpatient oral diabetes medications * Basal insulin * Lantus - on hold today * Steroid induced hyperglycemia * NPH 25 units Sq daily with dexamethasone * Bolus insulin: CR loosened * NovoLog per scale ACHS or Q6hrs while NPO * Goal Range: Low 110 mg/dL - High 140 mg/dL * Correction Factor: 20 mg/dL/unit * Nutritional / Prandial insulin per carb ratio of 1 unit per 9 grams CHO consumed PLAN FOR DISCHARGE: * A1c = 9% * Goal A1c <7% * A1c is between 8% and 10% --> consider dual combination therapy * Metformin + additional agent listed below. 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 Dosage increases should be made in increments of 500 mg weekly, up to 2,000 mg/day PO, given in divided doses. Doses above 2000 mg/day may be better tolerated if divided and given 3 times per day with meals. Max: 2,550 mg/day PO, in divided doses * Pt w/o compelling indication for next specific drug class. Next add on agent to metformin is based on patient specific factors including efficacy, hypo risk, weight gain/loss, side effects, cost * Compelling need to minimize weight gain or promote weight loss: * GLP-1 receptor agonist: Decreases major adverse cardiovascular events, high efficacy, low hypo risk, weight loss, significant GI side effects (titrate low and slow) and risk of thyroid tumors, high cost * SGLT2 inhibitor: Decreases major adverse cardiovascular events, intermediate efficacy, low hypo risk, weight loss, /dehydration and risk of amputation (canagliflozin) side effects, high cost * Cost is a major issue: * Sulfonylurea: high efficacy, high hypo risk, weight gain, low cost * Thiazolidinedione (TZD): high efficacy, low hypo risk, weight gain, significant side effects (edema, HF, fxs), low cost * Human insulin (NPH or premixed formulations): high efficacy, weight gain, minimal side effects * Support Patient Self-Management * Healthy Lifestyle (diet, exercise, and smoking cessation) * Disease self-management (SMBG) * Prevention of complications (BP, Lipid goals, Immunizations) * Consider outpatient Diabetes Self-Management Education & Support
[2021-02-18] MEDS: REMDESIVIR 100 MG in SODIUM CHLORIDE 0.9% 230 ML IV SCH (20:23)
[2021-02-18] MEDS ORDERED: INSULIN ASPART 100 UNITS/ML 3 ML PEN SC SCH (21:00)
[2021-02-18] MEDS: SODIUM CHLORIDE 0.9% 10ML FLUSH IV SCH (21:53)
--- NOTE | 2021-02-18 23:01 | Hospitalist Progress Note ---
Date of Service February 18, 2021 Assessment & Plan (1) COVID-19: Plan: Alvin Leija is a 60yo male with history of HLP, DM and GERD presenting with Covid-19 PNA with hypoxia. 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 Hypoxic on arrival to 84% on room air which improved with supplemental O2 - remains on 4LNC Patient is leukopenic with lymphopenia. WIth elevated troponin, PCT, LFTs, and significantly elevated inflammatory markers With LYLA as well which is now resolved CRP high at 10 CTA chest neg for PE but shows multifocal PNA Patient is unvaccinated -continue Dexamethasone 6mg IV daily x10-day course or stop if improves given severe hyperglycemia -Continue Remdesevir now that renal function is improved x5-day course-last day of treatment will be 02/19 -Continue Azithromycin x 5 day course in setting of elevated Procalcitonin-last day of treatment will be 02/18 -Lovenox 40mg BID for DVT prophylaxis in moderately ill -Now outside the window to be a candidate for baricitinib -continue supplemental O2 -prone or side positioning encouraged, IS, flutter valve continued -Added albuterol nebs which are really helping him -Continue nasal saline and humidified oxygen to prevent recurrent epistaxis (2) Sepsis: Plan: Sepsis, POA-now resolved with elevated procal, febrile, tachycardia, PNA on CXR treating for COVID and bacterial PNA with azithro (3) Elevated troponin: Plan: Patient states he has chest pain with coughing, otherwise no complaints ECG with age indeterminate inferior infarct -serial troponin trended downward c/w myocardial demand ischemia in the setting of hypoxia and PNA (4) Type 2 diabetes mellitus: Plan: Chronic. Poorly controlled - last HgbA1C = 9 on 10/11/20. Patient on Metformin at home. States that his blood sugars have been over 200 for the last 8 days prior to admission. GLucose here spiked into the 300s-400s despite high doses of Lantus, NPH, and Novolog first 24 hours converted to insulin gtt and since then was weaned off the insulin drip and back on basal bolus insulin along with NPH Glucose remains very labile with hypoglycemia in the morning and hyperglycemia in the afternoon and evenings no evidence of DKA or HHS Pharmacy is managing-added NPH in the morning and got rid of nighttime Lantus follow lytes and replace as needed (5) LYLA (acute kidney injury): Plan: Elevated BUN of 46 and Cr of 2.33 from baseline of 18 and 1.05, respectively. 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 -Hold Meloxicam and Lisinopril Follow BMP (6) Hypercholesterolemia: Plan: Chronic -Continue Rosuvastatin 10mg po daily (7) Hyperkalemia: Plan: K+ 5.3 shortly after admission but now improved with insulin use 2/2 LYLA Follow BMP (8) Hypomagnesemia: Plan: Replaced and improved (9) Hypoxia: Plan: acute resp failure with hypoxia secondary to COVID PNA as above (10) Pneumonia: Plan: as above Blood cultures-no growth to date (11) Esophageal reflux: Plan: Chronic -Continue PPI Plan: Ppx - Lovenox 40mg BID Code - Full per discussion with patient Dispo - continued stay on med [place], hopeful he will be able to wean off oxygen and be discharged home in the next 2 to 3 days Admission and Anticipated Discharge Date Admission Date: February 15, 2021 Subjective Patient reports feeling much better since having 2 nebulizer treatments. Feels much less tight in the chest and is able to take deeper breaths. He is not able to prone but is sleeping on his sides. He is doing the incentive spirometry and flutter valve. He is eating and drinking and moving his bowels, making urine, no abdominal pains. He has no other complaints. Telemetry with normal sinus rhythm with rates in the 70s to 110s. He still remains on 4 L nasal cannula Blood sugars are quite labile with both hypoglycemia and hyperglycemia Review of Systems Review of Systems: All systems reviewed & are unremarkable except as noted in HPI & below Physical Exam Constitutional: WD/WN, vitals as above Eyes: + anicteric sclerae Neck: trachea midline, no thyromegaly Respiratory: normal respiratory effort and + cough Auscultation: + diminished lung sounds (throughout) and + crackles (Bilateral lower and middle lung [place]); no wheezes Cardiovascular: RRR, no murmur, no edema Chest (Breasts): Chest: normal inspection of chest Gastrointestinal (Abdomen): normal bowel sounds, soft, nontender, no hepatosplenomegaly Musculoskeletal: Extremities: extremities normal to inspection; no cyanosis and no clubbing Skin: no rashes, warm and dry Neurologic: moves all extremities and awake; no focal motor deficits Psychiatric: A+Ox3, euthymic affect Lymphatic: no lymphedema Results & Data Results & Data ([facility]) Vital Signs (Past 12 Hours) Vital Signs Temp Pulse Pulse Resp BP Pulse Ox 02/18/21 18:56 36.3 C L 87 18 123/74 90 02/18/21 16:23 36.8 C 82 17 116/71 92 02/18/21 14:58 78 02/18/21 12:07 36.4 C L 100 H 20 154/67 H 92 Laboratory Results 02/18/21 02/18/21 02/18/21 Range/Units 20:00 19:59 16:12 POC Glucose 311 H* 314 H* 156 H (70-99) mg/dl 02/18/21 02/18/21 02/18/21 Range/Units 12:01 08:55 08:08 POC Glucose 217 H 152 H 56 L* (70-99) mg/dl PG Care Time/CCT Total # of Minutes Spent Total Time Spent with Patient: Total time spent is greater than 50% in coordination of care (as documented) at patient's floor/unit and/or counseling patient: Coding Level of Care Code 95314 Subseq Hosp Care Lvl 2 Diagnoses COVID-19 U07.1 Sepsis A41.9 Elevated troponin R77.8 Type 2 diabetes mellitus E11.9 LYLA (acute kidney injury) N17.9 Hypercholesterolemia E78.00 Hyperkalemia E87.5 Hypomagnesemia E83.42 Hypoxia R09.02 Pneumonia J18.9 Esophageal reflux K21.9
[2021-02-18] MEDS: AZITHROMYCIN 250 MG in DEXTROSE 5% 250 ML IV SCH (23:22)
[2021-02-19] MEDS ORDERED: INSULIN ASPART 100 UNITS/ML 3 ML PEN SC ONE (02:00)
[2021-02-19 06:14] LABS: Hematocrit (blood only) 33.9 % (42-52); Hemoglobin 11.5 g/dL (14.0-18.0); Mean Corpuscular Hgb Conc 33.9 g/dL (32-36); Mean Corpuscular Volume 88.5 fL (80-100); Mean Platelet Volume 10.4 fL (7.4-10.4); Platelet Count 380 K/uL (130-400); RDW Coefficient of Variation 12.5 % (11.5-14.5); RDW Standard Deviation 40.1 fL (36.4-46.3); Red Blood Count 3.83 M/uL (4.7-6.1); White Blood Count 6.67 K/uL (4.8-10.8)
[2021-02-19 06:40] LABS: Albumin Level 2.2 gm/dl (3.4-5.0); BUN Creatinine Ratio 16.3 (10-20); Calcium 8.5 mg/dl (8.5-10.1); Creatinine Clr Calc Pharmacy 81.9 ml/min; Est GFR (African American) 96.9 ml/min; Est GFR (Non-African American) 83.6 ml/min; Magnesium 1.8 mg/dl (1.8-2.4); Potassium 4.2 mmol/L (3.5-5.1)
[2021-02-19 06:44] LABS: Albumin Globulin Ratio 0.5 (0.9-2); Bilirubin,Total 0.4 mg/dl (0.2-1); Globulin 4.1 gm/dl (2.5-4.0); Total Protein 6.3 gm/dl (6.4-8.2)
[2021-02-19] MEDS: ENOXAPARIN INJ 40 MG/0.4 ML SYR SQ SCH ×2 (08:09→20:46)
[2021-02-19] MEDS: dexAMETHasone 6 MG in SYRINGE 0 ML IV SCH (08:09)
[2021-02-19] MEDS: PANTOprazole 40 MG TAB PO SCH (08:10)
[2021-02-19] MEDS: ROSUVASTATIN CALCIUM 10 MG TAB PO SCH (08:10)
[2021-02-19] MEDS: INSULIN ASPART 100 UNITS/ML 3 ML PEN SC SCH ×4 (08:11→20:45)
[2021-02-19] MEDS: INSULIN HUMAN NPH SC SCH (08:12)
[2021-02-19] MEDS: INSULIN GLARGINE SOLOSTAR 100 UNITS/ML 3 ML PEN SC SCH (08:13)
--- NOTE | 2021-02-19 10:59 | Pharmacy Report ---
Pharmacy Glycemic Short Note 2 - Date of Service February 19, 2021 - Glycemic Short BSG Results (Last 24 hours): 02/18/21 02/18/21 02/18/21 12:01 16:12 19:59 Glucose POC Glucose 217 H 156 H 314 H* 02/18/21 02/19/21 02/19/21 20:00 02:16 04:44 Glucose 187 H POC Glucose 311 H* 265 H 02/19/21 08:07 Glucose POC Glucose 158 H OUTPATIENT ANTIDIABETIC REGIMEN: * Metformin 500mg PO BIDM * A1c = 9% ASSESSMENT: 02/19: * Pt received total 57 units of insulin yesterday which is lower than previous days. Fasting BSG was low yesterday which is why basal was decreased. * BSG trended up to 314 mg/dl at HS last night. Increased NPH dose to 40 units today to be given with IV Dex and added Lantus 15 units in the AM. * Fasting BSG today was 158 mg/dl. Novolog carb ratio tightened back to 7 again. 02/18: * Pt received total 76 units of insulin yesterday; 55 units basal (15 units Lantus + 40 units NPH) and 21 units bolus. * Fasting BSG today was 56 mg/dl. Lantus dose discontinued for tonight to prevent hypoglycemia tomorrow AM. * Yesterday, post prandial BSGs were 116mg/dl at dinner and 82 mg/dl at HS. Lowered NPH insulin this AM by 35%. I suspect this may have been too much lowering of insulin and BSG may trend up tonight. Will adjust as needed tomorrow. * Novolog CR was also loosened with lunch today. 02/17 * Pt has received 90 units of insulin over the past 24hrs * 30 units of basal with Lantus * 35 units of NPH for steroid induced hyperglycemia from dex 6mg IV * 25 units of bolus with NovoLog * BSGs all elevated yesterday. NPH was held in the morning for LOW fasting BSG and not given until lunch time. Hyperglycemia from dex without NPH * Pt LOW again this morning AM fasting. Will HOLD AM dose of Lantus. This will be a 50% reduction in basal insulin. * Increase NPH slightly since all BSGs elevated yesterday after dex. NPH only has a 12-18 hr duration of action therefor this increase shouldn't affect AM fasting BSG tomorrow. * Tighten CF/CR for steroid induced hyperglycemia 02/16 * Pt has received 111 units of insulin over the past 24hrs * 22 units of basal with Lantus NPH * 35 units of NPH for steroid induced hyperglycemia with dexamethasone 6mg IV * 54 units of bolus with NovoLog * BSGs continued to rise - severe hyperglycemia yesterday requiring IV insulin infusion overnight. * IV insulin infusion stopped early this morning and patient given 15 units of Lantus at ~0500 * Will continue with weight based SQ basal bolus insulin regimen for steroid induced hyperglycemia and titrate based on BSG trends. * Pt with LOW BSG this AM - discussed with nursing. Will hold AM insulin and re- check at lunch time. Will administer when BSG >120 mg/dl 02/15 * 60yo T2DM male with poor outpatient control per recent A1c. Goal A1c <7% * Pt with SEVERE hyperglycemia secondary to poor baseline control, steroids, and illness (covid) * Will continue with SQ basal bolus insulin regimen for baseline needs - increase to high stress dosing for covid * Add weight based NPH to cover high dose steroids with dexamethasone 6mg IV daily. Rec dosing is 0.4 units/kg for doses of steroids 40mg prednisone {equivalent} or above. * Titrate based on BSG trends to maintain BSGs 110-140mg/dl range PLAN FOR INPATIENT GLYCEMIC CONTROL: * Hold outpatient oral diabetes medications * Basal insulin * Lantus 15 units SQ QAM * Steroid induced hyperglycemia * NPH 40 units Sq daily with IV dexamethasone * Bolus insulin: CR tightened * NovoLog per scale ACHS or Q6hrs while NPO * Goal Range: Low 110 mg/dL - High 140 mg/dL * Correction Factor: 20 mg/dL/unit * Nutritional / Prandial insulin per carb ratio of 1 unit per 7 grams CHO consumed PLAN FOR DISCHARGE: * A1c = 9% * Goal A1c <7% * A1c is between 8% and 10% --> consider dual combination therapy * Metformin + additional agent listed below. 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 Dosage increases should be made in increments of 500 mg weekly, up to 2,000 mg/day PO, given in divided doses. Doses above 2000 mg/day may be better tolerated if divided and given 3 times per day with meals. Max: 2,550 mg/day PO, in divided doses * Pt w/o compelling indication for next specific drug class. Next add on agent to metformin is based on patient specific factors including efficacy, hypo risk, weight gain/loss, side effects, cost * Compelling need to minimize weight gain or promote weight loss: * GLP-1 receptor agonist: Decreases major adverse cardiovascular events, high efficacy, low hypo risk, weight loss, significant GI side effects (titrate low and slow) and risk of thyroid tumors, high cost * SGLT2 inhibitor: Decreases major adverse cardiovascular events, intermediate efficacy, low hypo risk, weight loss, /dehydration and risk of amputation (canagliflozin) side effects, high cost * Cost is a major issue: * Sulfonylurea: high efficacy, high hypo risk, weight gain, low cost * Thiazolidinedione (TZD): high efficacy, low hypo risk, weight gain, significant side effects (edema, HF, fxs), low cost * Human insulin (NPH or premixed formulations): high efficacy, weight gain, minimal side effects * Support Patient Self-Management * Healthy Lifestyle (diet, exercise, and smoking cessation) * Disease self-management (SMBG) * Prevention of complications (BP, Lipid goals, Immunizations) * Consider outpatient Diabetes Self-Management Education & Support
--- NOTE | 2021-02-19 14:27 | Hospitalist Progress Note ---
Date of Service February 19, 2021 Assessment & Plan (1) COVID-19: Plan: Alvin Leija is a 60yo male with history of HLP, DM and GERD presenting with Covid-19 PNA with hypoxia. 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 Hypoxic on arrival to 84% on room air which improved with supplemental O2 - remains on 4LNC Patient is leukopenic with lymphopenia. WIth elevated troponin, PCT, LFTs, and significantly elevated inflammatory markers With LYLA as well which is now resolved CRP high at 10 AST and ALT mildly elevated, procalcitonin now negative, leukopenia resolved CTA chest neg for PE but shows multifocal PNA Patient is unvaccinated -continue Dexamethasone 6mg IV daily x10-day course or stop if improves given severe hyperglycemia-last dose will be 02/23 -Continue Remdesevir now that renal function is improved x5-day course-last day of treatment will be 02/19 -Continue Azithromycin x 5 day course in setting of elevated Procalcitonin-last day of treatment will be 02/18-we will stop -Lovenox 40mg BID for DVT prophylaxis in moderately ill -Now outside the window to be a candidate for baricitinib -continue supplemental O2 and wean off as able to -prone or side positioning encouraged, IS, flutter valve continued -Continue as needed albuterol nebs which are really helping him -Continue nasal saline and humidified oxygen to prevent recurrent epistaxis (2) Sepsis: Plan: Sepsis, POA-now resolved with elevated procal, febrile, tachycardia, PNA on CXR treating for COVID and bacterial PNA with azithro-completed the course Procalcitonin now negative, no further fevers, tachycardia resolved (3) Elevated troponin: Plan: Patient states he has chest pain with coughing, otherwise no complaints ECG with age indeterminate inferior infarct -serial troponin trended downward c/w myocardial demand ischemia in the setting of hypoxia and PNA (4) Type 2 diabetes mellitus: Plan: Chronic. Poorly controlled - last HgbA1C = 9 on 10/11/20. Patient on Metformin at home. States that his blood sugars have been over 200 for the last 8 days prior to admission. GLucose here spiked into the 300s-400s despite high doses of Lantus, NPH, and Novolog first 24 hours converted to insulin gtt and since then was weaned off the insulin drip and back on basal bolus insulin along with NPH Glucose remains very labile with hypoglycemia in the morning and hyperglycemia in the afternoon and evenings no evidence of DKA or HHS Pharmacy is managing-added NPH in the morning and got rid of nighttime Lantus and change it to Lantus in the morning for today follow lytes and replace as needed (5) LYLA (acute kidney injury): Plan: Elevated BUN of 46 and Cr of 2.33 from baseline of 18 and 1.05, respectively. Patient appeared clinically dry on exam upon admission but now is euvolemic -reel man now normal after IVFs -Avoid nephrotoxic agents. -Continue to hold Meloxicam and Lisinopril Follow BMP periodically (6) Hypercholesterolemia: Plan: Chronic -Continue Rosuvastatin 10mg po daily (7) Hyperkalemia: Plan: K+ 5.3 shortly after admission but now improved with insulin use 2/2 LYLA Follow BMP (8) Hypomagnesemia: Plan: Replaced and improved (9) Hypoxia: Plan: acute resp failure with hypoxia secondary to COVID PNA as above (10) Pneumonia: Plan: as above Blood cultures-no growth to date Will need repeat chest x-ray in 4 to 6 weeks to ensure resolution (11) Esophageal reflux: Plan: Chronic -Continue PPI (12) Leg edema: Plan: With development of peripheral edema noted on 02/19 without calf pain, slightly asymmetric right greater than left Likely due to dependent edema from sitting in the chair all day each day, but given that he is Covid-19 and is at high risk for DVT, will check bilateral lower extremity Dopplers Add YVONNE marks Plan: Ppx - Lovenox 40mg BID Code - Full per discussion with patient Dispo - continued stay on med [facility], hopeful he will be able to wean off oxygen and be discharged home in the next 2 to 3 days Admission and Anticipated Discharge Date Admission Date: February 15, 2021 Subjective Patient reports some mild cough. Still getting some bloody crust out of his nose despite using nasal saline spray. Also complains of increased swelling in the legs right greater than left over the last 24 hours, denies calf pain. No chest pain or shortness of breath. Appetite is good. Telemetry with normal sinus rhythm with rates in the 70s Review of Systems Review of Systems: All systems reviewed & are unremarkable except as noted in HPI & below Physical Exam Constitutional: WD/WN, vitals as above Eyes: + anicteric sclerae Neck: trachea midline, no thyromegaly Respiratory: normal respiratory effort and + cough Auscultation: + diminished lung sounds (throughout) and + crackles (Bilateral lower and middle lung [place]); no wheezes Cardiovascular: Rate/Rhythm: regular rate and regular rhythm Heart Sounds: no murmur Extremities: + edema (1-2+ pitting edema of the legs bilaterally right greater than left) Chest (Breasts): Chest: normal inspection of chest Gastrointestinal (Abdomen): normal bowel sounds, soft, nontender, no hepat osplenomegaly Musculoskeletal: Extremities: extremities normal to inspection; no cyanosis and no clubbing Skin: no rashes, warm and dry Neurologic: moves all extremities and awake; no focal motor deficits Psychiatric: A+Ox3, euthymic affect Results & Data Results & Data ([facility]) Vital Signs (Past 12 Hours) Vital Signs Temp Pulse Pulse Resp BP Pulse Ox 02/19/21 12:04 37.5 C 80 19 135/73 91 02/19/21 09:35 58 L 02/19/21 07:30 36.7 C 85 19 120/79 92 02/19/21 05:21 66 Laboratory Results 02/19/21 02/19/21 02/19/21 Range/Units 12:00 08:07 04:44 WBC (4.8-10.8) K/uL RBC (4.7-6.1) M/uL Hgb (14.0-18.0) g/dL Hct (42-52) % MCV (80-100) fL MCH (25-34) pg MCHC (32-36) g/dL RDW Std Deviation (36.4-46.3) fL RDW Coeff of Jen (11.5-14.5) % Plt Count (130-400) K/uL MPV (7.4-10.4) fL Sodium (136-145) mmol/L Potassium (3.5-5.1) mmol/L Chloride (98-107) mmol/L Carbon Dioxide (21-32) mmol/L Anion Gap (3-11) BUN (7-18) mg/dl Creatinine (0.6-1.4) mg/dl Est Cr Clr Drug Dosing ml/min Est GFR ( Amer) ml/min Est GFR (Non-Af Amer) ml/min BUN/Creatinine Ratio (10-20) Glucose (70-99) mg/dl POC Glucose 183 H 158 H (70-99) mg/dl Calcium (8.5-10.1) mg/dl Magnesium (1.8-2.4) mg/dl Total Bilirubin (0.2-1) mg/dl AST (15-37) U/L ALT (12-78) U/L Alkaline Phosphatase (45-117) U/L Total Protein (6.4-8.2) gm/dl Albumin (3.4-5.0) gm/dl Globulin (2.5-4.0) gm/dl Albumin/Globulin Ratio (0.9-2) Procalcitonin 0.44 (0-0.5) ng/ml 02/19/21 02/19/21 02/19/21 Range/Units 04:44 04:44 02:16 WBC 6.67 (4.8-10.8) K/uL RBC 3.83 L (4.7-6.1) M/uL Hgb 11.5 L (14.0-18.0) g/dL Hct 33.9 L (42-52) % MCV 88.5 (80-100) fL MCH 30.0 (25-34) pg MCHC 33.9 (32-36) g/dL RDW Std Deviation 40.1 (36.4-46.3) fL RDW Coeff of Jen 12.5 (11.5-14.5) % Plt Count 380 (130-400) K/uL MPV 10.4 (7.4-10.4) fL Sodium 138 (136-145) mmol/L Potassium 4.2 D (3.5-5.1) mmol/L Chloride 107 (98-107) mmol/L Carbon Dioxide 24 (21-32) mmol/L Anion Gap 7.0 (3-11) BUN 16 D (7-18) mg/dl Creatinine 0.99 (0.6-1.4) mg/dl Est Cr Clr Drug Dosing 81.9 ml/min Est GFR ( Amer) 96.9 ml/min Est GFR (Non-Af Amer) 83.6 ml/min BUN/Creatinine Ratio 16.3 (10-20) Glucose 187 H (70-99) mg/dl POC Glucose 265 H (70-99) mg/dl Calcium 8.5 (8.5-10.1) mg/dl Magnesium 1.8 (1.8-2.4) mg/dl Total Bilirubin 0.4 (0.2-1) mg/dl AST 51 H (15-37) U/L ALT 102 H (12-78) U/L Alkaline Phosphatase 44 L (45-117) U/L Total Protein 6.3 L (6.4-8.2) gm/dl Albumin 2.2 L (3.4-5.0) gm/dl Globulin 4.1 H (2.5-4.0) gm/dl Albumin/Globulin Ratio 0.5 L (0.9-2) Procalcitonin (0-0.5) ng/ml 02/18/21 02/18/21 02/18/21 Range/Units 20:00 19:59 16:12 WBC (4.8-10.8) K/uL RBC (4.7-6.1) M/uL Hgb (14.0-18.0) g/dL Hct (42-52) % MCV (80-100) fL MCH (25-34) pg MCHC (32-36) g/dL RDW Std Deviation (36.4-46.3) fL RDW Coeff of Jen (11.5-14.5) % Plt Count (130-400) K/uL MPV (7.4-10.4) fL Sodium (136-145) mmol/L Potassium (3.5-5.1) mmol/L Chloride (98-107) mmol/L Carbon Dioxide (21-32) mmol/L Anion Gap (3-11) BUN (7-18) mg/dl Creatinine (0.6-1.4) mg/dl Est Cr Clr Drug Dosing ml/min Est GFR ( Amer) ml/min Est GFR (Non-Af Amer) ml/min BUN/Creatinine Ratio (10-20) Glucose (70-99) mg/dl POC Glucose 311 H* 314 H* 156 H (70-99) mg/dl Calcium (8.5-10.1) mg/dl Magnesium (1.8-2.4) mg/dl Total Bilirubin (0.2-1) mg/dl AST (15-37) U/L ALT (12-78) U/L Alkaline Phosphatase (45-117) U/L Total Protein (6.4-8.2) gm/dl Albumin (3.4-5.0) gm/dl Globulin (2.5-4.0) gm/dl Albumin/Globulin Ratio (0.9-2) Procalcitonin (0-0.5) ng/ml PG Care Time/CCT Total # of Minutes Spent Total Time Spent with Patient: Total time spent is greater than 50% in coordination of care (as documented) at patient's floor/unit and/or counseling patient: Coding Level of Care Code 04375 Subseq Hosp Care Lvl 3 Diagnoses COVID-19 U07.1 Sepsis A41.9 Elevated troponin R77.8 Type 2 diabetes mellitus E11.9 LYAL (acute kidney injury) N17.9 Hypercholesterolemia E78.00 Hyperkalemia E87.5 Hypomagnesemia E83.42 Hypoxia R09.02 Pneumonia J18.9 Esophageal reflux K21.9 Leg edema R60.0
--- NOTE | 2021-02-19 16:58 | Ultrasound Report ---
BILATERAL LOWER EXTREMITY VENOUS DOPPLER CLINICAL HISTORY: edema,COVID, r/o DVT COMPARISON STUDY: No previous studies for comparison. TECHNIQUE: Sonography of the deep venous system of the bilateral lower extremities was performed. Co mpression and augmentation were evaluated. FINDINGS: The bilateral common femoral, superficial femoral and popliteal veins were compressible. A ugmentation was normal. Flow was shown within the deep calf vessels. IMPRESSION: No evidence of deep venous thrombus within the bilateral lower extremities. ACT 112: Negative or not required by law. Electronically signed by: Reagan Landaverde M.D. 02/19/2021 4:57 PM
[2021-02-19] MEDS: REMDESIVIR 100 MG in SODIUM CHLORIDE 0.9% 230 ML IV SCH (19:39)
[2021-02-19] MEDS: SODIUM CHLORIDE 0.9% 10ML FLUSH IV SCH (21:47)
[2021-02-20] MEDS: dexAMETHasone 6 MG in SYRINGE 0 ML IV SCH (08:31)
[2021-02-20] MEDS: ROSUVASTATIN CALCIUM 10 MG TAB PO SCH (08:32)
[2021-02-20] MEDS: PANTOprazole 40 MG TAB PO SCH (08:32)
[2021-02-20] MEDS: ENOXAPARIN INJ 40 MG/0.4 ML SYR SQ SCH ×2 (08:32→20:43)
[2021-02-20] MEDS: INSULIN ASPART 100 UNITS/ML 3 ML PEN SC SCH ×4 (08:45→20:43)
[2021-02-20] MEDS: INSULIN GLARGINE SOLOSTAR 100 UNITS/ML 3 ML PEN SC SCH (08:45)
[2021-02-20] MEDS: INSULIN HUMAN NPH SC SCH (10:04)
--- NOTE | 2021-02-20 16:03 | Hospitalist Progress Note ---
Date of Service February 20, 2021 Assessment & Plan (1) COVID-19: Plan: Alvin Leija is a 60yo male with history of HLP, DM and GERD presenting with Covid-19 PNA with hypoxia. 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 WIth elevated troponin, PCT, LFTs, and significantly elevated inflammatory markers With LYLA as well which is now resolved CRP high at 10 AST and ALT mildly elevated, procalcitonin now negative, leukopenia resolved CTA chest neg for PE but shows multifocal PNA Patient is unvaccinated -continue Dexamethasone 6mg IV daily but given his severe hyperglycemia, would discontinue the dexamethasone upon discharge so he does not have to be on insulin at home-most likely last dose will be on 02/21 -Completed a 5-day course of Remdesevir -Completed 5-day course of azithromycin in setting of elevated Procalcitonin -Lovenox 40mg BID for DVT prophylaxis in moderately ill -continue supplemental O2 and wean off as able to-check two-step walk test in the morning in preparation for discharge -prone or side positioning encouraged, IS, flutter valve continued -Continue as needed albuterol nebs which are really helping him -Continue nasal saline and humidified oxygen to prevent recurrent epistaxis (2) Sepsis: Plan: Sepsis, POA-now resolved with elevated procal, febrile, tachycardia, PNA on CXR treating for COVID and bacterial PNA with azithro-completed the course Procalcitonin now negative, no further fevers, tachycardia resolved Can downgrade off of telemetry (3) Elevated troponin: Plan: Patient states he has chest pain with coughing, otherwise no complaints ECG with age indeterminate inferior infarct -serial troponin trended downward c/w myocardial demand ischemia in the setting of hypoxia and PNA Downgrade off telemetry Consider stress test as an outpatient after recovery (4) Type 2 diabetes mellitus: Plan: Chronic. Poorly controlled - last HgbA1C = 9 on 10/11/20. Patient on Metformin at home. States that his blood sugars have been over 200 for the last 8 days prior to admission. GLucose here spiked into the 300s-400s despite high doses of Lantus, NPH, and Novolog first 24 hours converted to insulin gtt and since then was weaned off the insulin drip and back on basal bolus insulin along with NPH Glucose remains very labile with hypoglycemia in the morning and hyperglycemia in the afternoon and evenings no evidence of DKA or HHS Pharmacy is managing-added NPH in the morning Lantus in the morning-we will discontinue steroids upon discharge so he will not need further insulin at home follow lytes and replace as needed Plan to restart home Metformin on discharge (5) LYLA (acute kidney injury): Plan: Elevated BUN of 46 and Cr of 2.33 from baseline of 18 and 1.05, respectively. 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 -Continue to hold Meloxicam but can now restart lisinopril Follow BMP periodically (6) Hypercholesterolemia: Plan: Chronic -Continue Rosuvastatin 10mg po daily (7) Hyperkalemia: Plan: K+ 5.3 shortly after admission but now improved with insulin use 2/2 LYLA Follow BMP (8) Hypomagnesemia: Plan: Replaced and improved (9) Hypoxia: Plan: acute resp failure with hypoxia secondary to COVID PNA as above, improving (10) Pneumonia: Plan: as above Blood cultures-no growth to date Will need repeat chest x-ray in 4 to 6 weeks to ensure resolution (11) Esophageal reflux: Plan: Chronic -Continue PPI (12) Leg edema: Plan: With development of peripheral edema noted on 02/19 without calf pain, slightly asymmetric right greater than left Likely due to dependent edema from sitting in the chair all day each day, but given that he is Covid-19 and is at high risk for DVT, checked Dopplers-negative for DVT bilateral lower extremity Dopplers Edema is now resolved after adding YVONNE williame Plan: Ppx - Lovenox 40mg BID Code - Full per discussion with patient Dispo -[place] medical/surgical floor, two-step walk test in the morning and hopefully discharge home Sunday, overall much improved Admission and Anticipated Discharge Date Admission Date: February 15, 2021 Subjective Patient feeling much better, more energy, less short of breath and is weaned down to 2 L nasal cannula. He reports today he took his oxygen off and walked back and forth around his room for couple of minutes and did not feel short of breath. He does not know what his pulse ox did but his nurse told him that it stayed "good." He reports the swelling in his legs is now resolved with YVONNE marks Review of Systems Review of Systems: All systems reviewed & are unremarkable except as noted in HPI & below Physical Exam Constitutional: WD/WN, vitals as above Eyes: + anicteric sclerae Neck: trachea midline, no thyromegaly Respiratory: normal respiratory effort and + cough Auscultation: + diminished lung sounds (throughout) and + crackles (Bilateral lower and middle lung [place]); no wheezes Cardiovascular: RRR, no murmur, no edema Heart Sounds: no murmur Chest (Breasts): Chest: normal inspection of chest Gastrointestinal (Abdomen): normal bowel sounds, soft, nontender, no hepatosplenomegaly Musculoskeletal: Extremities: extremities normal to inspection; no cyanosis and no clubbing Skin: no rashes, warm and dry Neurologic: moves all extremities and awake; no focal motor deficits Psychiatric: A+Ox3, euthymic affect Lymphatic: no lymphedema Results & Data Results & Data ([facility]) Vital Signs (Past 12 Hours) Vital Signs Temp Pulse Pulse Resp BP Pulse Ox 02/20/21 12:00 36.6 C 72 18 121/73 95 02/20/21 08:29 36.8 C 65 18 139/81 91 02/20/21 07:39 62 PG Care Time/CCT Total # of Minutes Spent Total Time Spent with Patient: Total time spent is greater than 50% in coordination of care (as documented) at patient's floor/unit and/or counseling patient: Coding Level of Care Code 44133 Subseq Hosp Care Lvl 2 Diagnoses COVID-19 U07.1 Sepsis A41.9 Elevated troponin R77.8 Type 2 diabetes mellitus E11.9 LYLA (acute kidney injury) N17.9 Hypercholesterolemia E78.00 Hyperkalemia E87.5 Hypomagnesemia E83.42 Hypoxia R09.02 Pneumonia J18.9 Esophageal reflux K21.9 Leg edema R60.0
[2021-02-21 06:52] LABS: Basophils # (auto) 0.01 K/uL (0-0.2); Basophils % (auto) 0.1 %; Eosinophils # (auto) 0.14 K/uL (0-0.5); Eosinophils % (auto) 1.1 %; Hematocrit (blood only) 38.9 % (42-52); Hemoglobin 13.2 g/dL (14.0-18.0); Immature Granulocytes # (auto) 0.12 K/uL (0.00-0.02); Lymphocytes # (auto) 1.45 K/uL (1.2-3.4); Lymphocytes % (auto) 11.8 %; Mean Corpuscular Hemoglobin 30.3 pg (25-34); Mean Corpuscular Hgb Conc 33.9 g/dL (32-36); Mean Corpuscular Volume 89.4 fL (80-100); Monocytes # (auto) 1.31 K/uL (0.11-0.59); Monocytes % (auto) 10.6 %; Neutrophils % (auto) 75.4 %; Platelet Count 527 K/uL (130-400); RDW Coefficient of Variation 12.3 % (11.5-14.5); RDW Standard Deviation 39.9 fL (36.4-46.3); Red Blood Count 4.35 M/uL (4.7-6.1); White Blood Count 12.33 K/uL (4.8-10.8)
[2021-02-21 07:27] LABS: Albumin Level 2.4 gm/dl (3.4-5.0); BUN Creatinine Ratio 16.1 (10-20); C Reactive Protein 6.37 mg/dl (0-0.29); Calcium 9.2 mg/dl (8.5-10.1); Creatinine Clr Calc Pharmacy 71.1 ml/min; Est GFR (African American) 81.7 ml/min; Est GFR (Non-African American) 70.5 ml/min; Potassium 3.8 mmol/L (3.5-5.1)
[2021-02-21 07:29] LABS: Albumin Globulin Ratio 0.5 (0.9-2); Bilirubin,Total 0.4 mg/dl (0.2-1); Globulin 4.4 gm/dl (2.5-4.0); Total Protein 6.8 gm/dl (6.4-8.2)
[2021-02-21] MEDS ORDERED: lisinopril 5 MG TAB PO SCH (09:00)
[2021-02-21] MEDS ORDERED: INSULIN GLARGINE SOLOSTAR 100 UNITS/ML 3 ML PEN SC SCH (09:00)
--- NOTE | 2021-02-21 09:32 | Pharmacy Report ---
Pharmacy Glycemic Short Note 2 - Date of Service February 21, 2021 - Glycemic Short BSG Results (Last 24 hours): 02/20/21 02/20/21 02/20/21 12:19 17:30 20:40 Glucose POC Glucose 182 H 297 H 210 H 02/21/21 02/21/21 06:27 07:38 Glucose 60 L POC Glucose 76 OUTPATIENT ANTIDIABETIC REGIMEN: * Metformin 500mg PO BIDM * A1c = 9% ASSESSMENT: 02/21: * BSGs increased throughout the day yesterday, 92, 182, 297, and 210 mg/dL * Received 15 units of Lantus, 40 units of NPH, and 36 units of Novolog (91 units total) * Fasting BSG of 76 mg/dL this morning, will decrease Lantus ~20% * Maintain current NPH dose with IV dexamethasone, consider tightening Novolog carb coverage at lunchtime 02/19: * Pt received total 57 units of insulin yesterday which is lower than previous days. Fasting BSG was low yesterday which is why basal was decreased. * BSG trended up to 314 mg/dl at HS last night. Increased NPH dose to 40 units today to be given with IV Dex and added Lantus 15 units in the AM. * Fasting BSG today was 158 mg/dl. Novolog carb ratio tightened back to 7 again. 02/15 * 60yo T2DM male with poor outpatient control per recent A1c. Goal A1c <7% * Pt with SEVERE hyperglycemia secondary to poor baseline control, steroids, and illness (covid) * Will continue with SQ basal bolus insulin regimen for baseline needs - increase to high stress dosing for covid * Add weight based NPH to cover high dose steroids with dexamethasone 6mg IV daily. Rec dosing is 0.4 units/kg for doses of steroids 40mg prednisone {equivalent} or above. * Titrate based on BSG trends to maintain BSGs 110-140mg/dl range PLAN FOR INPATIENT GLYCEMIC CONTROL: * Hold outpatient oral diabetes medications * Basal insulin - reduce * Lantus 12 units SQ QAM * Steroid induced hyperglycemia - continue * NPH 40 units SQ daily with IV dexamethasone * Bolus insulin: continue * NovoLog per scale ACHS or Q6hrs while NPO * Goal Range: Low 110 mg/dL - High 140 mg/dL * Correction Factor: 20 mg/dL/unit * Nutritional / Prandial insulin per carb ratio of 1 unit per 7 grams CHO consumed PLAN FOR DISCHARGE: * A1c = 9% * Goal A1c <7% * A1c is between 8% and 10% --> consider dual combination therapy * Metformin + additional agent listed below. (B12 supplementation may be necessary with prison metformin) * Recommend maximizing/titrating metformin dosing: Continue to titrate metformin dosing upwards as recommended. Dosage increases should be made in increments of 500 mg weekly, up to 2,000 mg/day PO, given in divided doses. Doses above 2000 mg/day may be better tolerated if divided and given 3 times per day with meals. Max: 2,550 mg/day PO, in divided doses * Pt w/o compelling indication for next specific drug class. Next add on agent to metformin is based on patient specific factors including efficacy, hypo risk, weight gain/loss, side effects, cost * Compelling need to minimize weight gain or promote weight loss: * GLP-1 receptor agonist: Decreases major adverse cardiovascular events, high efficacy, low hypo risk, weight loss, significant GI side effects (titrate low and slow) and risk of thyroid tumors, high cost * SGLT2 inhibitor: Decreases major adverse cardiovascular events, intermediate efficacy, low hypo risk, weight loss, /dehydration and risk of amputation (canagliflozin) side effects, high cost * Cost is a major issue: * Sulfonylurea: high efficacy, high hypo risk, weight gain, low cost * Thiazolidinedione (TZD): high efficacy, low hypo risk, weight gain, significant side effects (edema, HF, fxs), low cost * Human insulin (NPH or premixed formulations): high efficacy, weight gain, minimal side effects * Support Patient Self-Management * Healthy Lifestyle (diet, exercise, and smoking cessation) * Disease self-management (SMBG) * Prevention of complications (BP, Lipid goals, Immunizations) * Consider outpatient Diabetes Self-Management Education & Support
[2021-02-21] MEDS: INSULIN ASPART 100 UNITS/ML 3 ML PEN SC SCH ×2 (10:42→13:09)
[2021-02-21] MEDS: dexAMETHasone 6 MG in SYRINGE 0 ML IV SCH (10:43)
[2021-02-21] MEDS: ENOXAPARIN INJ 40 MG/0.4 ML SYR SQ SCH (10:43)
[2021-02-21] MEDS: PANTOprazole 40 MG TAB PO SCH (10:43)
[2021-02-21] MEDS: ROSUVASTATIN CALCIUM 10 MG TAB PO SCH (10:43)
[2021-02-21] MEDS: INSULIN HUMAN NPH SC SCH (10:43)
--- NOTE | 2021-02-21 18:04 | Discharge Summary ---
Date of Service February 21, 2021 Admission HPI Per Admitting Provider Alvin Leija is a 60yo male with history of HLP, DM and GERD presenting with Covid-19 Pneumonia with hypoxia. Patient reports developing symptoms 8 days ago - persistent cough occasionally productive for thick mucus, fevers, body aches and chills as well as weakness and fatigue. He has some chest discomfort associated with coughing. Denies nausea, vomiting, diarrhea or constipation. Denies loss of taste or smell. He is not vaccinated against Covid-19. He took a home test 2 days ago which was POSITIVE. Upon arrival to the ER patient febrile at 38.1, tachycardic at 135bpm, hypoxic at 84% on room air. He was placed on supplemental O2 by nasal cannula with improvement. Presently 98% on 4L. No additional complaints at this time. ER Course: ASA 324mg PO, Azithromycin 500mg IV, Ceftriaxone 1gm IV, Dexam ethasone 10mg IV, NSS x 500mL Principal Diagnosis 1. Covid with PNA/Hypoxemia 2. AKIresolved 3. Sepsis syndromeresolved 4. Hyperglycemialikely steroid-induced in the setting of diabetes mellitus Discharge Exam General: Resting comfortably in his hospital bed. Does not appear ill or toxic. NAD. HEENT: Head is AT/NC buccal mucosa is moist and pink Neck: No JVD. Negative hepatojugular reflex Cardiac: RRR without M/G/R Lungs: Speaking full sentences on ambient air at the time of evaluation by myself. Accessory muscle use. Breathing nonlabored. Clear to auscultation without W/R/R Abdomen: Normoactive X4. Soft and nontender in all quadrants. Extremities: No peripheral clubbing cyanosis or edema Neuro: A&O X4 cranial nerves II through XII are grossly intact no focal neuro deficits Skin: No obvious skin lesions or rashes Psych: Appropriate affect pleasant and cooperative Discharge Data Allergies Allergy/AdvReac Type Severity Reaction Status Date / Time No Known Allergies Allergy Verified 10/05/20 14:59 Ordered Studies 02/14/21 19:33 CT angio chest PE protocol Urgent IMPRESSION: 1. No pulmonary emboli identified however evaluation of upper lobe pulmonary arteries significantly compromised by suboptimal opacification. 2. Extensive ground glass opacities within lungs consistent with viral pneumonia. 3. Extensive coronary artery calcification. 02/19/21 14:27 US venous doppler LE Urgent IMPRESSION: No evidence of deep venous thrombus within the bilateral lower extremities. Diabetes Follow up Diabetes Follow-up Needed for HgbA1c >9% Hospital Course (1) COVID-19: Alvin Leija is a 60yo male with history of HLP, DM and GERD presenting with Covid-19 PNA with hypoxia. 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 Hypoxic on arrival to 84% on room air which improved with supplemental O2 Remained on 4 L nasal cannula for 4 days. Wean down to 2 L yesterday and to room air today. Pulse ox 90 to 92% on room air. Patient is leukopenic with lymphopenia. WIth elevated troponin, PCT, LFTs, and significantly elevated inflammatory markers With LYLA as well which is now resolved CRP high at 10 and downtrending AST and ALT mildly elevated, procalcitonin now negative, leukopenia resolved CTA chest neg for PE but shows multifocal PNA Patient is unvaccinated -Treated with dexamethasone 6mg IV daily but given his severe hyperglycemia, will not continue this upon discharge -Completed a 5-day course of Remdesevir -Completed 5-day course of azithromycin in setting of elevated Procalcitonin -Lovenox 40mg BID for DVT prophylaxis in moderately ill -Overall, patient has had favorable response -Two-step pulse oximetry done this morning showing no need for oxygen at rest but does require 3 L with ambulation -DC with continued supportive care (Tessalon Perles and proair rescue inhaler if needed) -To follow-up with PCP within 2 weeks (2) Sepsis: Sepsis, POA-now resolved with elevated procal, febrile, tachycardia, PNA on CXR treated for COVID and bacterial PNA with azithro-completed the course Procalcitonin now negative, no further fevers, tachycardia resolved (3) Elevated troponin: Patient states he has chest pain with coughing, otherwise no complaints ECG with age indeterminate inferior infarct -serial troponin trended downward c/w myocardial demand ischemia in the setting of hypoxia and PNA Downgraded off telemetry Consider stress test as an outpatient after recovery (4) Type 2 diabetes mellitus: Chronic. Poorly controlled - last HgbA1C = 9 on 10/11/20. Patient on Metformin at home. States that his blood sugars have been over 200 for the last 8 days prior to admission. GLucose here spiked into the 300s-400s despite high doses of Lantus, NPH, and Novolog first 24 hours converted to insulin gtt and since then was weaned off the insulin drip and back on basal bolus insulin along with NPH Glucose remained very labile with hypoglycemia in the morning and hyperglycemia in the afternoon and evenings no evidence of DKA or HHS Pharmacy is managing-added NPH in the morning Lantus in the morning-we will discontinue steroids upon discharge so he will not need further insulin at home follow lytes and replace as needed restart home Metformin on discharge (5) LYLA (acute kidney injury): Elevated BUN of 46 and Cr of 2.33 from baseline of 18 and 1.05, respectively. 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 -Continue to hold Meloxicam (would use only as needed) but can now restart lisinopril and Metformin (6) Hypercholesterolemia: Chronic -Continue Rosuvastatin 10mg po daily (7) Hyperkalemia: K+ 5.3 shortly after admission but now improved with insulin use 2/2 LYLA (8) Hypomagnesemia: Replaced and improved (9) Hypoxia: acute resp failure with hypoxia secondary to COVID PNA as above, improving (10) Pneumonia: as above Blood cultures-no growth to date Will need repeat chest x-ray in 4 to 6 weeks to ensure resolution (11) Esophageal reflux: Chronic -Continue PPI (12) Leg edema: With development of peripheral edema noted on 02/19 without calf pain, slightly asymmetric right greater than left Likely due to dependent edema from sitting in the chair all day each day, but given that he is Covid-19 and is at high risk for DVT, checked Dopplers-negative for DVT bilateral lower extremity Dopplers Edema is now resolved after adding YVONNE hose Discharge recommendationsat discretion of PCP: 1. Follow-up two-step pulse oximetry to determine continued need for supplemental oxygen 2. Follow-up CT of the chest1 month 3. Follow-up BMPto trend renal function with resumption of home medications 4. Referral to cardiology for outpatient stress test given elevated troponin which was thought to be supply/demand ischemia Total Time Total Time Spent Total Time Spent (In Minutes): 60 min Discharge Plan Discharge Items Patient Disposition: Home - Self-Care Reason For Visit: COVID-PNEUMONIA, HYPOXIA Discharge Diagnosis: 1. Covid PNA 2. Elevated Troponin- to see cardiology as an OP 3. Hyperglycemia (likely steroid induced) Activity: As commented below Activity Comment: as tolerated Non-emergency contact: Primary Care Provider Call non-emergency contact if: you have any medication questions Follow-up/Referrals: Alexx Ayala III, MD [Primary Care Provider] - Diet: Carb Consistent or DM2 Addtl Attending Provider Instructions: - You were hospitalized with Covid Pnuemonia - You were treated with a 5 day course of Remdesevir (which does NOT treat covid but helps prevent further viral replication) - In addition, you were treated with IV steroids (to help prevent further inflammatory response) - Overall, your oxygen requirements have improved. You are no longer requiring any supplemental Oxygen at rest. You do; however, require 3L with ambulation/exertion (goal pulse ox= >/=88%) - You should remain home from work for at least the next week to continue to recover - You will become easily fatigued- this may be ongoing x weeks-months - you have been Prescribed tessalon perles (which can be used as needed for cough) and a proventil inhaler (to use for cough/wheezing/shortness of breath) - Your lisinopril/metformin and mobic were held initially-- given mild dehydration and abnormal kidney function tests. Kindey function back to normal. Okay to resume metformin and lisinopril. Use mobic NEEDED for now. - You did have an elevated troponin (heart enzyme) while in the hospital-- likely related to your low oxygen level and "supply/demand mismatch". Recommend that you are referred to a pump runner (to be done by PCP) - Follow up with PCP: 7-10 days - Return to the ED for new or worsening symptoms Pending Studies at Discharge: No Stand-Alone Forms: My [facility] Medications and DC Order Prescriptions: New benzonatate [Tessalon Perles] 100 mg Capsule 100 mg PO TID PRN (Reason: cough) Qty: 30 RF: 0 albuterol sulfate [Proventil HFA] 90 mcg/actuation HFA aerosol inhaler 2 inh inhalation Q6H PRN (Reason: shortness of breath or wheezing) Qty: 6.7 RF: 0 Continued rosuvastatin 10 mg tablet 10 mg PO DAILY Qty: 90 RF: 3 metformin 500 mg tablet extended release 24 hr 1,000 mg PO BID Qty: 360 RF: 3 meloxicam 7.5 mg tablet 7.5 mg PO DAILY Qty: 30 RF: 11 lisinopril 5 mg tablet 5 mg PO DAILY RF: 0 omeprazole 20 mg capsule,delayed release(DR/EC) 20 mg PO DAILY RF: 0 Discharge Orders: Discharge Order (Routine); Ordered 02/21/21 Ordered By: Nenita Vázquez/Other Patient Handouts: Using Oxygen Safely, If Oxygen Is Prescribed Admission Data Admit Date/Time: 02/15/21 00:45 Attending Provider: Carl Longoria Admit Provider: Imelda Oviedo Primary Care Provider: Alexx Ayala III Other Interventions: Discharge Summary Assessment (RN) Last Done: 02/21/21 12:31 Supervising Physician Co-Signing Physician Notes I supervised Nenita Burr PA-C on the care of this patient. I interviewed and examined the patient independently of her. The plan is as written in her note except for any following changes/exceptions: None Doing well today. No shortness of breath at rest. O2 arranged for exertion. Ready to go home. Coding Level of Care Code D/C DAY MANAGEMENT >30 MINS Diagnoses COVID-19 U07.1 Sepsis A41.9 Elevated troponin R77.8 Type 2 diabetes mellitus E11.9 LYLA (acute kidney injury) N17.9 Hypercholesterolemia E78.00 Hyperkalemia E87.5 Hypomagnesemia E83.42 Hypoxia R09.02 Pneumonia J18.9 Esophageal reflux K21.9 Leg edema R60.0 Time Spent (min) 60
== END 2021-02-21 13:09 | disposition home or self-care (01) | DRG 871 ==
LOC: ED 18:15 → 2W 23:56 → SUATTDRO 23:56 → 2W 02-15 00:36 → SUATTDRO 02-15 00:45